=== PATIENT | male | born 1955 | race Caucasian/White ===

== ENCOUNTER 2023-10-20 09:24 | Outpatient (AMB) | payer MEDICARE, SELFPAY ==
--- NOTE | 2023-10-20 10:16 | MHC.OFFVIS ---
Intake Intake Visit Reasons: Low back pain Assessment & Plan Assessment & Plan (1) Lumbar stenosis: Code(s): M48.061 - Spinal stenosis, lumbar region without neurogenic claudication Plan Dear Jonathan, Thank you for referring Mr Ortega to our office today. He is a very nice 68-year-old gentleman presents to the office today for evaluation of a chronic low back pain with bilateral claudicating leg pains. He has had the symptoms now in his low back dating all the way back to college 45 years ago. He was very active athlete playing baseball and football. Along through the years he has had progressively worsening of the back pain as well as he is developed more recently over the last number of years progressive pain or discomfort that goes down to the front of his legs and occasionally into his calves with standing and walking. When he goes downstairs his legs will feel a little weak like they are going to give out. He had a few falls last year because of it. He was recently taken off his atorvastatin and that seemed to have helped a little bit but has not taken the symptoms away. He has been through numerous rounds of physical therapy and cortisone injections. These never seemed to give him the relief he is looking for. Maybe they will last for few days or so. At 1 point he was seen at [facility] and did not feel like he was given proper attention so never followed up with them. He is here today to see us for evaluation of lumbar MRI done at [facility] showing severely collapsed degenerative discs with lumbar stenosis. He does take Celebrex twice a day to help the pain. PMH: He is reasonably healthy, history of hypertension high cholesterol. He had thumb surgery in college. Denies any heart attacks, stroke, kidney issues, bleeding disorders or pulmonary problems Social hx: He does not smoke, quit drinking about a year ago, denies any recreational drug Medications: Celebrex and hypertensive medication which he can not recall the name Allergies: None Physical exam: Strength is intact, absent reflexes bilaterally at the patella and Achilles, gait is normal Imaging review: Lumbar MRI done at [facility] in February of 2023 shows severely collapse if not auto fused discs at L2-3, L3-4 and L4-5. He has severe facet arthropathy at L5-S1. He has moderate to severe lumbar stenosis at L2-3 and L3-4. Impression: 68-year-old male presents to the office today for evaluation of back pain as well as bilateral leg pain with standing walking which goes down into the front of his legs anteriorly into the thighs and then can extend down into the calves. It will make him feel as though his legs want to give out on him when he is going downstairs or if he is walking for any length of time. He has had to curtail much of his exercise. He has been through conservative treatment at [facility] and it just continues to get worse. The back pain is uncomfortable but not disabling. The leg pain is giving him more of a problem in the sense that is limiting his activities. He does have stenosis at L2-3 and L3-4 amongst other severe degenerative changes in the discs anteriorly. I believe he may have already auto fused the segments from L2-L5. That may be why he is having increased facet arthropathy at L5-S1. We talked about the fact that treating his back pain surgically would involve spinal fusion and would be much harder to predict the outcome because of the multiple areas of degeneration and suspected auto fusion. His back pain is not terrible and not disabling. He is more interested in the idea of treating the stenosis and the feeling of weakness and discomfort when he is walking. Typically that is something Dr. Tijerina would treat with a simple decompression, I suspect that the L2-3 and L3-4 levels. We did review the procedure and go over the recovery. I will review his imaging with Dr. Tijerina. The patient will get back to me as to whether he would like to proceed with surgery. Thank you for allowing us to care for your patient. The total time spent with this visit with this patient was 45 minutes reviewing history, physical exam, lumbar imaging review, and implementation of treatment plan or further diagnostic testing Jaret Tijerina MD,PhD [facility] Coding Level of Care Code New Pt Level 4 (16746) Diagnoses Lumbar stenosis M48.061
== END 2023-10-20 10:21 | disposition home or self-care (01) ==
PROVIDERS: PCP Physician Assistant Medical; Referring Provider Student in an Organized Health Care Education/Training Program; Visit Provider Physician Assistant
DX: M48.061 Spinal stenosis, lumbar region without neurogenic claudication (principal)
CPT/HCPCS: 99204

== ENCOUNTER → 2023-10-20 09:24 | Outpatient (BNVA) | payer MEDICARE, SELFPAY | PROVIDERS: PCP Physician Assistant Medical; Visit Provider Physician Assistant | DX: M48.061 Spinal stenosis, lumbar region without neurogenic claudication (principal); M47.817 Spondylosis without myelopathy or radiculopathy, lumbosacral region | CPT/HCPCS: 99202 ==

== ENCOUNTER 2023-10-31 14:32 | Outpatient (AMB) | payer MEDICARE, SELFPAY ==
--- NOTE | 2023-10-31 15:16 | A.OFFVIS_ITS ---
Intake Intake Visit Reasons: to discuss sx also with Assessment & Plan Assessment & Plan (1) Lumbar stenosis: Code(s): M48.061 - Spinal stenosis, lumbar region without neurogenic claudication Plan Mr. Ortega is coming back to the office today to review his procedure again and to meet Dr. Tijerina. This is a gentleman I previously saw for complaints of bilateral anterior thigh pain. We again reviewed his procedure, L3-4 bilateral decompression through a unilateral right-sided approach. Surgery is tentatively scheduled for December 27. Pt was given risk and benefits of surgery including but not limited to infection, hematoma , nerve injury,durotomy, weakness,bowel/bladder injury, persistent pain, as well as the option to continue with conservative treatment and patient wishes to proceed with surgery. Pt is aware they should stop their motrin, aspirin 7 days prior to surgery. All questions were answered to the best of our ability. If there is anything about this patients medical history that we have overlooked or concerns you have about us proceeding with surgery we would appreciate any input you can offer. Total amount of time spent in this visit was 20 minutes in discussion of symptoms, lumbar MRI imaging results and subsequent plan of care Jaret Tijerina MD,PhD [facility] Coding Level of Care Code Est Pt Level 3 (44414) Diagnoses Lumbar stenosis M48.061
== END 2023-10-31 14:52 | disposition home or self-care (01) ==
PROVIDERS: PCP Physician Assistant Medical; Visit Provider Physician Assistant
DX: M48.061 Spinal stenosis, lumbar region without neurogenic claudication (principal)
CPT/HCPCS: 99213

== ENCOUNTER → 2023-10-31 14:32 | Outpatient (BNVA) | payer MEDICARE, SELFPAY | PROVIDERS: PCP Physician Assistant Medical; Visit Provider Physician Assistant | DX: M48.061 Spinal stenosis, lumbar region without neurogenic claudication (principal) | CPT/HCPCS: 99212 ==

== ENCOUNTER 2023-12-28 06:27 | Day surgery (SDC) | payer MEDICARE, SELFPAY ==
[2023-12-20 14:36] VITALS: BMI 32.2
--- NOTE | 2023-12-26 14:06 | HO.ANESPROP2 ---
Documented by User: Jeanna Edmondson NP 12/26/23 14:06 HPI - Anesthesia Eval Consult details Narrative: 68yo M for Bilateral L3-4 Lumbar Decompression Medically cleared PMFSH Active Problems Active Problems: All Active Problems (Updated 12/20/23 @ 14:40 by Joanie Plasencia, ESTRELLITA) Lumbar stenosis (Acute) Past Medical History Medical History Frozen shoulder Back pain Weakness of both legs Sciatica Plantar fasciitis of right foot Obese GERD (gastroesophageal reflux disease) Elevated cholesterol HTN (hypertension) Surgical History Surgical History Hx of colonoscopy History of wisdom tooth extraction Hx of tonsillectomy Hx of thumb surgery Social History Social History Household Members: Spouse Housing: House Are you a primary home health care provider to a significant other at home: No Do you presently have visiting nurse or other home services: No Patient Tobacco Use Status: Never used Tobacco Use of substances other than those prescribed or required for medical reasons: No Have you been hit, kicked, punched, or otherwise hurt by someone within the past year? If so, by whom?: No Are you DNR?: No Advance Directives: No Advance Directives Information Provided: Yes Advance Directives on File: No Recently lost weight without trying: No Meds Allergies Allergy/AdvReac Type Severity Reaction Status Date / Time No Known Allergies Allergy Verified 12/20/23 14:32 Home Medications ?Medication ?Instructions ?Recorded ?Confirmed ?Last Taken ?Type amlodipine 5 mg tablet 5 mg PO DAILY 12/19/23 12/19/23 12/28/23 History celecoxib 100 mg capsule 100 mg PO BID 12/19/23 12/20/23 12/17/23 History lisinopril 10 mg tablet 10 mg PO DAILY 12/19/23 12/19/23 Unknown History loratadine 10 mg tablet 10 mg PO DAILY 12/19/23 12/19/23 Unknown History metoprolol tartrate 100 mg tablet 100 mg PO DAILY 12/19/23 12/19/23 12/28/23 History Exam Height,Weight and Vital Signs: Height 5 ft 8.9 in Weight 98.6 kg Pertinent Lab Results Pertinent Lab Results: CBC and BMP 11/2023 from outside facility WNL Assessment and Plan Assessment Anesthesia Assessment: Chart Reviewed Documented by User: Emiliano Schaffer MD 12/28/23 08:08 [facility] Past Medical History Medical History Frozen shoulder Back pain Weakness of both legs Sciatica Plantar fasciitis of right foot Obese GERD (gastroesophageal reflux disease) Elevated cholesterol HTN (hypertension) Family History Family history of problems with anesthesia: No Surgical History Surgical History Hx of colonoscopy History of wisdom tooth extraction Hx of tonsillectomy Hx of thumb surgery History of Problems with Anesthesia: No Social History Social History Household Members: Spouse Housing: House Are you a primary home health care provider to a significant other at home: No Do you presently have visiting nurse or other home services: No Patient Tobacco Use Status: Never used Tobacco Use of substances other than those prescribed or required for medical reasons: No Have you been hit, kicked, punched, or otherwise hurt by someone within the past year? If so, by whom?: No Are you DNR?: No Advance Directives: No Advance Directives Information Provided: Yes Advance Directives on File: No Recently lost weight without trying: No Meds Allergies Allergy/AdvReac Type Severity Reaction Status Date / Time No Known Allergies Allergy Verified 12/20/23 14:32 Home Medications ?Medication ?Instructions ?Recorded ?Confirmed ?Last Taken ?Type amlodipine 5 mg tablet 5 mg PO DAILY 12/19/23 12/19/23 12/28/23 History celecoxib 100 mg capsule 100 mg PO BID 12/19/23 12/20/23 12/17/23 History lisinopril 10 mg tablet 10 mg PO DAILY 12/19/23 12/19/23 Unknown History loratadine 10 mg tablet 10 mg PO DAILY 12/19/23 12/19/23 Unknown History metoprolol tartrate 100 mg tablet 100 mg PO DAILY 12/19/23 12/19/23 12/28/23 History Exam Airway Mallampati Class: II TM Dist: >3cm Neck ROM: Full Denture: Upper Loose/Missing/Broken Teeth: Yes (poor dentition lower teeth) Heart: [id number] Lungs: cta b/l Assessment and Plan Assessment Anesthesia Assessment: Anesthesia Plan Discussed Final Anesthetic Review Family History of Problems with Anesthesia: No History of Problems with Anesthesia: No NPO: Yes ASA Class: III Final Preanesthetic Review: No Changes in Pt Med Stat, Meds/Allgs Chart Reviewed, Consent Obtained/Reviewed and Anes Risks/Benef Reviewed Patient Risk: Intermediate Procedure Risk: Intermediate Assessment/Block/Sedation in SS: Assess/Block/Sedation-SS Anesthetic Plan Anesthetic Plan: GA Disposition: Standard PACU
--- NOTE | ~2023-12-28 | FL_ITS ---
EXAMINATION: XR FLUOROSCOPY WITH IMAGES CLINICAL INFORMATION: Lumbar decompression COMPARISON: None available. TECHNIQUE: Fluoroscopy Supervised By: Breezy. Fluoroscopy Time: 0 minutes. Cumulative Dose: 2.7 mGy. DAP: 0.6 Gycm2. Images: 1. FINDINGS: Single lateral intraoperative view of the lumbar spine demonstrate surgical instruments posterior to the L3-4 disc space level. FL/FL guidance in OR IMPRESSION: Intraoperative fluoroscopy guidance for lumbar spine surgery.
[2023-12-28] MEDS: Gabapentin 300 MG CAPSULE PO (06:53)
[2023-12-28] MEDS: methocarbamoL 750 MG TABLET PO (06:53)
[2023-12-28 06:54] VITALS: BP 121/79; PULSE 87; RESP 18; TEMP 36.1; O2SAT 95
--- NOTE | 2023-12-28 07:02 | P.HPSUR_ITS ---
Pre-Procedural Eval Section A - 24 Hr Update-Section A only Date of Service: 12/28/23 The patient is an INPATIENT: No Changes since office visit: No Cold of Flu in the past 2 weeks, No New Medical Problems, No Changes in Medication and No Patient answered all questions The patient has been examined within 24 hours of the surgical procedure. The History & Physical has been completed within 30 days and I have reviewed it.: No Section B - Complete if H&P > 30 days Chief Complaint: Spinal stenosis, lumbar region without neurogenic Allergies: Allergies Allergy/AdvReac Type Severity Reaction Status Date / Time No Known Allergies Allergy Verified 12/20/23 14:32 Review of Systems Sugical H&P ROS: Negative: Constitution, Cardiovascular, Respiratory, Neurological, Psychiatric, Hem-Onc, Allergic/Immunologic, Gastrointestinal, Genitourinary, Musculoskeletal, Integumentary, Endocrine and Eyes/Ears/Nose/Thro at Exam Surgical H&P Exam: Not Evaluated: HEENT, Not Evaluated: Heart, Not Evaluated: Lungs, Not Evaluated: Extremities, Not Evaluated: Abdomen, Not Evaluated: Skin and Not Evaluated: Neurological Plan Diagnosis/Plan: Unchanged L3-4 decompression Time Spent With Patient Time: Total time managing care of this patient today _6___ minutes.
[2023-12-28] MEDS: Lactated Ringers 1,000 ML 100 ML IVCONT (07:19)
--- NOTE | 2023-12-28 10:05 | W.PM.OPN ---
Operative Note Operative Note Date of Service: 12/28/23 Narrative: Preoperative Diagnosis: L3-L4 spinal stenosis/lateral recess stenosis/neural foraminal stenosis Operation: L3-L4 bilateral Laminotomy, Partial facetectomy and foraminotomy with use of microscope Consent Informed Consent was obtained for this operation. I have explained the nature, purpose and benefits of the operation. I have discussed the risks and benefit of the operation including possible complications or adverse events with patient/family. Alternative(s) were discussed with the patient with their relative benefits and risks as well as the consequences of not accepting the operation were included in obtaining consent. Surgeon: JENNIFER HARRISON MD, PHD Procedure Assisted By: Jaret Moy Description of Procedure This patient is suffering from bilateral thighs pain. An MRI shows spinal stenosis L3-4 and severe degenerative disc disease L3-4, L4-5 L5-S1. The patient was offered a decompression. The procedure complications were explained. The patient was consented. The patient was brought to the operating room and endotracheally intubated. The patient was turned in prone position on the Walt frame. Prep and drape was done followed by timeout. The Physician technical services assistant provided access. A mid lumbar incision was made followed by release of the paravertebral muscle on the right side to expose the L3-4 laminaeand facet joints. An intraoperative x-ray was obtained to confirm the correct level. The microscope was brought in. I took over the procedure. The high-speed drill was used to do a L3-L4 laminotomy until flavum ligament was reached. A #2 Kerrison was used to expand the laminotomy near flush to the pedicles and to include a partial facetectomy. The flavum ligament was opened and resected with a #3 Kerrison to decompress the underlying thecal sac. The flavum ligament was removed to decompress the lateral recess and the exiting L4 nerve root. A long nerve hook could be easily passed along the medial side of the pedicles as a sign of adequate decompression. The patient was turned contralaterally. The spinous processes undercut after which a contralateral decompression was done for the lateral recess and exiting nerve root. The microscope was removed. Hemostasis was done. The physician technical services assistant close the Incision in 2 layers. Steri-Strips were used to approximate incision. An OpSite with Tegaderm was used to cover the incision. All sponge needle counts were correct. Patient was extubated and transported in stable is to recovery room. Anesthesia: General Estimated Blood Loss (ml): 15 mL Complications: None Duration of Surgery: Under 60 Minutes Postoperative Plan: Discharge to home
--- NOTE | 2023-12-28 10:15 | P.DS_ITS ---
DS: Providers Provider Date of Service: 12/28/23 Date of discharge: 12/28/23 Primary care physician: DURAN Antunez Admitting clinician: Jeferson Tijerina DS: Diagnosis Discharge Diagnosis (1) Lumbar stenosis: Status: Acute DS: Summary Time Attestation Discharge Coordination Time (in mins): Five Quality: Safe Use of Opioids Does Pt have an Active Cancer Diagnosis on the Problem List?: No Quality: Stroke Does the patient have a stroke diagnosis?: No Physical Exam Vital Signs: Vital Signs: Last Vital Signs Temp 97.0 F 12/28/23 06:54 Pulse 87 12/28/23 06:54 Resp 18 12/28/23 06:54 BP 121/79 12/28/23 06:54 Pulse Ox 95 12/28/23 06:54 O2 Del Method Room Air 12/28/23 06:54 BMI result Body Mass Index 32.2 Discharge Plan Discharge Patient Disposition: Home, Self-Care Referrals: Sunita Lyons PA [Primary Care Provider] - 1 Week Discharge Medications: New docusate sodium [Colace] 100 mg capsule 100 mg PO BID Qty: 20 0RF oxycodone 5 mg tablet 5 mg PO Q4H PRN (Reason: pain) Qty: 30 0RF Rx Instructions: Partial Fill upon patient request. Continued metoprolol tartrate 100 mg tablet 100 mg PO DAILY amlodipine 5 mg tablet 5 mg PO DAILY lisinopril 10 mg tablet 10 mg PO DAILY celecoxib 100 mg capsule 100 mg PO BID loratadine 10 mg tablet 10 mg PO DAILY Discharge Orders: Discharge Order (Routine); Ordered 12/28/23 Ordered By: Jaret Mosqueda Diet: Advance to usual diet Activity on Discharge: As tolerated Activity Restrictions/Additional Instructions: After your spinal surgery we ask you to observe the following restrictions/guidelines: Activity: It is normal to feel some discomfort as you increase your activity, but that will improve with time. We ask you avoid heavy lifting or acitivities that cause pain. As a general rule, 8lbs is a safe limit for lifting right after surgery. Walk as much as you feel comfortable but not to exhaustion. You will feel extra tired the first few days after surgery. Stay well hydrated. It is OK to walk up and down stairs You may return to driving when you are off narcotics (such as vicodin, oxycodone, dilaudid, etc), and you are back to normal functional capacity. If you have any concerns please check with office before driving. Return to work is specific to each patient and each surgery, so please speak with your doctor/PA at first follow up. Please bring paperwork such as FMLA at that time if you need it filled out. Medications: For optimum pain control, it is best to start with a combination of 500 mg of Tylenol every 4 hours with 600 mg of Motrin every 8 hours, and use narcotics as needed in between for breakthrough pain. We will give you a short supply of narcotics after surgery (usually one weeks worth). If you need more please call the office but do not use more than prescribed. You will need to give our office 48 hours notice if you need narcotics refilled and we do not fill narcotics on weekends or evenings. If you are on a narcotic, it is a good idea to take a stool softener such as colace or senna to avoid constipation If you take blood thinner such as aspirin, Plavix, Coumadin, Effient, Eliquis etc for conditions such as Afib, DVT, Pulmonary embolus, coronary disease, stents etc please speak with your surgeon about specific details as to when you can resume these medications. You can resume NSAIDs on post op day 1 (eg: Motrin, Naproxen, etc). Follow up: Please call the office, , after surgery to arrange a 3 week follow up for wound check. Wound Care: You may remove your dressing on the first day after surgery. ?You may ?leave open to air. Please do not remove the steri strips underneath. they will fall off on their own in one week. IT IS NORMAL FOR THE WOUND TO OOZE OR BE BLOODY FOR A FEW DAYS AFTER SURGERY. ?IF THIS HAPPENS JUST PLACE NEW DRESSING OVER IT TO AVOID STAINING CLOTHES. You may shower on post op day # 1 We ask that you do not let the water soak the wound. If it does get wet, just towel dry lightly. Please do not scrub your incision or place any type of chemical/ointment on the wound. No tub baths, pools or jacuzzis for one month. If you have any leaking or redness from your wound, or fevers, please call office Print Language: Surinamese
[2023-12-28 10:35] VITALS: BP 132/77; PULSE 60; RESP 12; TEMP 36.1; O2SAT 97
[2023-12-28 10:40] VITALS: BP 117/75; PULSE 70; RESP 15; O2SAT 95
[2023-12-28 10:45] VITALS: BP 123/66; PULSE 72; RESP 16; O2SAT 96
[2023-12-28 10:50] VITALS: BP 130/89; PULSE 79; RESP 16; O2SAT 95
[2023-12-28 11:05] VITALS: BP 140/80; PULSE 68; RESP 16; TEMP 36.1; O2SAT 96
== END 2023-12-28 12:42 | disposition home or self-care (01) ==
PROVIDERS: PCP Physician Assistant Medical; Visit Provider Neurological Surgery
PROC: (CPT 63047; principal; 2023-12-28 08:30)
DX: M48.061 Spinal stenosis, lumbar region without neurogenic claudication (principal); M51.36 Other intervertebral disc degeneration, lumbar region; I10 Essential (primary) hypertension; E78.00 Pure hypercholesterolemia, unspecified; Z79.899 Other long term (current) drug therapy
CPT/HCPCS: 63047; J0131; J0690; J1100; J1885; J2250; J2405; J2704; J3010

== ENCOUNTER → 2023-12-28 06:27 | Outpatient (BNV) | payer MEDICARE, SELFPAY | PROVIDERS: PCP Physician Assistant Medical; Visit Provider Neurological Surgery | DX: M48.061 Spinal stenosis, lumbar region without neurogenic claudication (principal) | CPT/HCPCS: 63047; 99499 ==

== ENCOUNTER 2024-01-18 10:33 | Outpatient (AMB) | payer MEDICARE, SELFPAY ==
--- NOTE | 2024-01-18 10:39 | HO.SPINEOV ---
Intake Visit Reasons: 1st post op Intake Note: Mr. Ortega is here today for 1st post-op appointment. Waste Examiner Required: No Allergies No Known Allergies Allergy (Verified 01/18/24 10:42) Assessment & Plan Assessment & Plan (1) Status post lumbar spine surgery for decompression of spinal cord: Code(s): Z98.890 - Other specified postprocedural states Category: Medical Plan Procedure: L3-L4 bilateral Laminotomy, Partial facetectomy Jeferson comes in today for his 1st postoperative visit. He reports he is very satisfied with the surgery and feels much better than he did pre-operatively. He reports resolution of the left-sided shooting lower extremity pain and his anterior thigh pain. He does state that he still has some pain at the top of his left foot, but feels this too is improving to an extent. He is able to ambulate much better, and has no issue completing stairs anymore. No new neurological deficits. Patient is able to ambulate well, rises from a seated position without difficulty. Incision sites are closed & well healing. I removed his steri-strips which remained on since surgery. We will follow-up with the patient in 6 weeks for his 2nd postoperative visit. Leonard Tijerina MD,PhD [facility] Coding Level of Care Code Global (77976) Diagnoses Status post lumbar spine surgery for decompression of spinal cord Z98.890
== END 2024-01-18 11:17 | disposition home or self-care (01) ==
PROVIDERS: PCP Physician Assistant Medical; Visit Provider Physician Assistant
DX: Z98.890 Other specified postprocedural states (principal)
CPT/HCPCS: 99024

== ENCOUNTER → 2024-01-18 10:33 | Outpatient (BNVA) | payer MEDICARE, SELFPAY | PROVIDERS: PCP Physician Assistant Medical; Visit Provider Physician Assistant | DX: Z48.89 Encounter for other specified surgical aftercare (principal) | CPT/HCPCS: 99212 ==

== ENCOUNTER 2024-03-11 14:33 | Outpatient (AMB) | payer MEDICARE, SELFPAY ==
--- NOTE | 2024-03-11 14:38 | A.SPINEOV_ITS ---
Intake Visit Reasons: 2nd post op Intake Note: Mr. Ortega is here for his 2nd post op. Machines Technician Required: No Allergies No Known Allergies Allergy (Verified 01/18/24 10:42) Assessment & Plan Assessment & Plan (1) Lumbar stenosis: Code(s): M48.061 - Spinal stenosis, lumbar region without neurogenic claudication Category: Medical Plan Mr Ortega is about 2 and half months out from his L3-4 decompression. Has seen some improvements in his ability to walk and mobilize and go up and downstairs. He is right now doing better than he was before surgery with respect to those functional activities. Still continues to have bilateral hip pain. He was seen at the [facility] office by Dr. Leonard and recommended to have trochanteric bursa injections. He did not get the injections because Dr. Leonard wanted to wait 3 months after our surgery. On my exam, the gentleman strength is good, his wound is all healed up. We discussed activity guidelines, restrictions expectations after lumbar decompression. I told him it would be about 6-8 months before he would see the final results of the surgery but that it was already optimistic that he was walking better. In terms of the trochanteric injections, Dr. Leonard can proceed with these at any time if he wishes, there is no contraindication from our standpoint of our surgery. Jaret Tijerina MD, PhD [facility] Coding Level of Care Code Global (71285) Diagnoses Lumbar stenosis M48.061
== END 2024-03-11 14:55 | disposition home or self-care (01) ==
PROVIDERS: PCP Physician Assistant Medical; Visit Provider Physician Assistant
DX: M48.061 Spinal stenosis, lumbar region without neurogenic claudication (principal)
CPT/HCPCS: 99024

== ENCOUNTER → 2024-03-11 14:33 | Outpatient (BNVA) | payer MEDICARE, SELFPAY | PROVIDERS: PCP Physician Assistant Medical; Visit Provider Physician Assistant | DX: M48.061 Spinal stenosis, lumbar region without neurogenic claudication (principal) | CPT/HCPCS: 99212 ==

== ENCOUNTER 2025-02-28 13:03 | Outpatient (AMB) | payer OTHER, SELFPAY ==
--- NOTE | 2025-02-28 13:04 | A.SPINEOV_ITS ---
Intake Visit Reasons: LBP Intake Note: Mr. Ortega is here today c/o Low back pain that radiates down the leg causing numbness. 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 We did L3-4 laminotomies last year and him with good success for his bilateral claudicating leg pain. Unfortunately in the over the last few months he has had a recurrence of pain, specifically some back pain which is radiating down into his left hip going into his left anterior medial thigh as well as into his posterior thigh and outer calf into his foot. He describes it as a tight feeling on the top of his foot. He is also reporting some degree of footdrop where he has to lift his leg up higher to avoid tripping on things. He has been taking ibuprofen and Tylenol religiously to help deal with it. It is aggravated with standing and walking. On my exam he looks a little uncomfortable just sitting on the exam table. When he gets up to walk he appears to have a Trendelenburg gait. On my motor exam he has a very subtle weakness of his left tibialis. Nothing profound. His wound is healed up very well from last year. In light of the progression of his symptoms and what sounds like possibly an L5 radiculopathy I am going to order MRI to evaluate. We will do this with and without gadolinium in light of his postoperative status. Total amount of time spent in this visit was 20 minutes in discussion of symptoms, ordering lumbar imaging and subsequent plan of care Jaret Tijerina MD,PhD [facility] Orders: Orders MR lumbar spine wo/w con Today M48.061 - Spinal stenosis, lumbar region without neurogenic claudication Coding Level of Care Code Est Pt Level 3 (71891) Diagnoses Lumbar stenosis M48.061
--- OUTSIDE RECORDS SUMMARY | 2025-02-28 13:06 | XMS_ITS | Clinical Summary ---
Author Organization [facility] [address] [facility] Address [address] [place] [address] Phone Care Team Providers Care Water Hydrant Installer Name Role Phone Dereje Cavanaugh MD Primary Care Provider Social History Tobacco Use Types Packs/Day Years Used Date Smoking Tobacco: Never Assessed Sex and Gender Information Value Date Recorded Sex Assigned at Not on file Legal Sex Male 9:56 AM EDT Gender Identity Not on file Sexual Orientation Not on file Plan of Treatment Upcoming Encounters Date Type Department Care Team (Late st Contact Info) Description 08/12/2025 11:30 AM EST Office Visit Adult Medicine [address] [phone] Dereje Cavanaugh MD [address] [place] [address] Health Maintenance Due Date Last Done Comments DTaP,Tdap,and Td Vaccines (1 - Tdap) 02/10/1975 Pneumococcal Vaccine: 50+ Ye ars (1 of 1 - PCV) 02/10/2006 Zoster Vaccines (1 of 2) 02/10/2006 COVID-19 Vaccine ( - 2023-2 5 season) 2024 Abdominal Aortic Aneurysm (A AA) Screen 02/15/2025 Cholesterol Screening (Lipid Panel) 02/15/2025 Colorectal Cancer Screening: Colonoscopy 02/15/2025 Depression Screening 02/15/2025 Falls Risk Assessment 02/15/2025 Hepatitis C Screening 02/15/2025 Medicare Annual Wellness Visit 02/15/2025 Social Influencers of Health Screening 02/15/2025 Influenza Vaccine (Season Ended) 2025 RSV Immunization Adult Patie nts (1 - 1-dose 75+ series) 02/10/2031 HIB Vaccines Aged Out No longer eligi ble based on patient's age to complete this topic HPV Vaccines Aged Out No longer eligi ble based on patient's age to complete this topic Hepatitis A Vaccines Aged Out No long er eligible based on patient's age to complete this topic Hepatitis B Vaccines Aged Out No long er eligible based on patient's age to complete this topic IPV Vaccines Aged Out No longer eligi ble based on patient's age to complete this topic MMR Vaccines Aged Out No longer eligi ble based on patient's age to complete this topic Meningococcal ACWY Vaccine Aged Out N o longer eligible based on patient's age to complete this topic Meningococcal B Vaccine Aged Out No l onger eligible based on patient's age to complete this topic RSV Immunization Patients Un leeanna 20 months Aged Out No longer eligible b ased on patient's age to complete this topic Varicella Vaccines Aged Out No longer eligible based on patient's age to complete this topic Insurance [employer] MEDICARE ADVANTAGE Care Teams Water Hydrant Installer Relationship Specialty Start Date End Date Dereje Cavanaugh MD [address] [place] [address] PCP - General Internal Medicine 02/14/25
== END 2025-02-28 13:35 | disposition home or self-care (01) ==
LOC: HO.HNS 13:03
PROVIDERS: PCP Physician Assistant Medical; Visit Provider Physician Assistant
DX: M48.061 Spinal stenosis, lumbar region without neurogenic claudication (principal)
CPT/HCPCS: 99213

== ENCOUNTER 2025-03-04 16:11 | Outpatient (REF) | payer OTHER, SELFPAY ==
--- OUTSIDE RECORDS SUMMARY | 2025-03-04 18:55 | XMS_ITS | Clinical Summary ---
Author Organization [facility] [address] [facility] Address [address] [place] [address] Phone Care Team Providers Care Fabric Sourcer Name Role Phone Dereje Cavanaugh MD Primary [...] 11:30 AM EST Office Visit Adult Medicine [address] [phone] Dereje Cavanaugh MD [address] [place] [address] Health Maintenance Due Date Last Done Comments [...] topic Insurance [employer] MEDICARE ADVANTAGE Care Teams Fabric Sourcer Relationship Specialty Start Date End Date Dereje Cavanaugh MD [address] [place] [address] PCP - General Internal Medicine 02/14/25
== END 2025-03-04 16:12 | disposition home or self-care (01) ==
LOC: HO.HOSX 16:11
PROVIDERS: Visit Provider Physician Assistant
DX: Z13.89 Encounter for screening for other disorder (principal)

== ENCOUNTER 2025-03-05 08:17 | Outpatient (REF) | payer OTHER, SELFPAY ==
--- NOTE | ~2025-03-05 | XR_ITS ---
EXAMINATION: X-ray lumbar spine 4 views CLINICAL INFORMATION: Spinal stenosis, lumbar region without neurogenic claudication. TECHNIQUE: AP and lateral views. Lateral views in flexion and extension position. COMPARISON: None FINDINGS: Multilevel marginal osteophyte formation and endplate sclerosis decreased intervertebral disc height throughout the axial skeleton with incomplete ankylosis L2-3. S-shaped curvature of the lumbar spine with a levoconvex rotoscoliosis apex at L3-4. Grade 1 retrolisthesis L4-5 which maintains during flexion and extension position. No acute cortical disruption. Vascular calcifications, aorta. XR/XR lumbar spine 4V min IMPRESSION: Multilevel spondylosis with a levoconvex rotoscoliosis apex at L3-4 and a grade 1 retrolisthesis L4-5 without gross instability. Electronically signed by: Sandeep Parrish MD 03/05/2025 09:31 AM EDT
--- OUTSIDE RECORDS SUMMARY | 2025-03-05 08:26 | XMS_ITS | Clinical Summary ---
Author Organization [facility] [address] [facility] Address [address] [place] [address] Phone Care Team Providers Care Radiological Engineer Name Role Phone Dereje Cavanaugh MD Primary [...] 11:30 AM EST Office Visit Adult Medicine [address] [phone] Dereje Cavanaugh MD [address] [place] [address] Health Maintenance Due Date Last Done Comments [...] topic Insurance [employer] MEDICARE ADVANTAGE Care Teams Radiological Engineer Relationship Specialty Start Date End Date Dereje Cavanaugh MD [address] [place] [address] PCP - General Internal Medicine 02/14/25
== END 2025-03-05 08:18 | disposition home or self-care (01) ==
LOC: HO.HOSX 08:17
PROVIDERS: Visit Provider Physician Assistant
DX: M48.061 Spinal stenosis, lumbar region without neurogenic claudication (principal)
CPT/HCPCS: 72110

== ENCOUNTER → 2025-03-05 08:28 | Outpatient (BNV) | payer OTHER, SELFPAY | PROVIDERS: Visit Provider Radiology Diagnostic Radiology | DX: M47.896 Other spondylosis, lumbar region (principal) | CPT/HCPCS: 72110 ==

== ENCOUNTER 2025-03-18 18:12 | Outpatient (REF) | payer MEDICARE, SELFPAY ==
--- NOTE | ~2025-03-18 | MR_ITS ---
EXAMINATION: MR LUMBAR SPINE WITH AND WITHOUT CONTRAST CLINICAL INFORMATION: Spinal stenosis, lumbar region, without neurogenic claudication. 70-year-old male. Spinal stenosis, cannot walk without pain and numbness left leg and both feet for 4 months, ongoing. No improvement, no injury or fall. COMPARISON: No prior MRI. Lumbar spine radiographs 03/05/2025. TECHNIQUE: Multiplanar multisequence MR imaging of the lumbar spine was done before and after the administration of 10 mL IV Gadavist. Examination was performed on a 1.5 Sonali Siemens magnet, utilizing standard sequences. FINDINGS: CORONAL ALIGNMENT: -Mild levoconvex scoliosis, apex at L4 with a mild rotatory component. SAGITTAL ALIGNMENT: - Straightening of the normal lordosis. -There is a 2 mm retrolisthesis of L2 on L3. -There is a 5 mm retrolisthesis of L4 on L5. -Alignment is otherwise anatomic. LUMBOSACRAL JUNCTION: -Normal. There are 5 fzb-[id number] lumbar-type vertebral bodies. VERTEBRAL BODIES/BONE MARROW: -No gross bone marrow edema identified. No abnormal infiltrating bone marrow signal. -There are prominent fatty type endplate changes present at L2-L5. -There has been a right hemilaminotomy at L3-4 with presumed microdiscectomy. -There is no compression deformity, fracture, or suspicious bone lesion. DISCS: -Severe loss of disc height and signal spanning L2-L5. -Mild loss of disc height and signal at T12-L1, and L1-L2. -Relative preservation of L5-S1 disc. SPINAL CANAL: -There is congenital spinal canal narrowing with shortened pedicles spanning L1-S1. CONUS MEDULLARIS: -Terminates at T12. Morphology and signal is normal. INTRADURAL NERVE ROOTS: - Within normal limits. No nerve root clumping. -No abnormal intra or extradural enhancement. -Epidural lipomatosis present throughout the lumbar spine, most significant at L5 and S1. Axial Disc Space Images: T12-L1: There is a shallow concentric disc bulge present, mild hypertrophic degenerative facet changes, resulting in mild central canal narrowing, and mild bilateral neural foraminal narrowing. L1-L2: Shallow concentric disc bulge present with a superimposed left paracentral and lateral disc protrusion. This contacts, and may impinge the traversing left L2 nerve roots. There is epidural lipomatosis laterally and posteriorly. There is mild to moderate central canal stenosis, moderate to severe left subarticular recess stenosis, and mild left greater than right neural foraminal stenosis. L2-L3: There is lateral and dorsal epidural lipomatosis. There is a shallow disc osteophytic ridge complex, slightly eccentric into the left neural foramen, extending into both neural foramen and lateral to foramen on both sides. Moderate hypertrophic degenerative facet changes are present with moderate posterior ligamentous thickening/infolding. Combination of findings is resulting in moderate to severe central canal stenosis with central nerve root crowding and loss of CSF space. There is moderate bilateral neural foraminal narrowing left greater than right. L3-L4: There has been right hemilaminotomy and stripping of the right ligamentum flavum. There is been presumed microdiscectomy. There is a residual shallow disc osteophytic ridge complex, more prominent in the right greater than left foraminal zones. Mild left lateral and dorsal epidural lipomatosis. Moderate left greater than right hypertrophic degenerative facet changes. There is mild to moderate central canal narrowing, mild bilateral subarticular recess narrowing, moderate to severe right and [id number]-yb-cbhiejqv left neural foraminal stenosis. There is contact without definite impingement of the exiting right L3 nerve root. L4-L5: There is a degenerative 5 mm retrolisthesis at this level. There is a disc osteophytic ridge complex present extending into both foraminal zones left greater than right. Moderate hypertrophic degenerative facet changes are present right greater than left. There is right greater than left posterior ligamentous thickening/infolding. There is mild dorsal epidural lipomatosis. Combination of findings is resulting in moderate to severe central canal stenosis, moderate to severe left greater than right subarticular recess stenosis, and moderate bilateral neural foraminal encroachment. L5-S1: Epidural lipomatosis circumferentially. Loss of CSF space with crowding of the nerve roots in the central canal. Moderate hypertrophic degenerative facet changes with bilateral facet joint effusions. Aside from epidural lipomatosis, there is no significant central canal or subarticular recess narrowing. Moderate right and moderate to severe left neural foraminal encroachment is present, with contact and possible mild impingement of the exiting left L5 root. PARAVERTEBRAL AND INCLUDED EXTRASPINAL SOFT TISSUES: -Normal caliber aorta. -Mild denervation atrophy of the paraspinous musculature at L4 and inferior. MR/MR lumbar spine wo/w con IMPRESSION: 1. There has been prior laminotomy on the right at L3-4 with presumed microdiscectomy. 2. Advanced lumbar spondylosis most significant at L2-L5 with severe disc degeneration at these levels. There is a mild levoconvex rotary scoliosis. There is congenital spinal canal narrowing complicated by epidural lipomatosis spanning L1-S1. 3. Left paracentral and lateral disc protrusion at L1-2 is resulting in severe left subarticular recess narrowing. This may impinge the traversing L2 nerve root. 4. Additional level findings as detailed above. Electronically signed by: Anuel Pineda MD 03/19/2025 09:10 AM EDT
[2025-03-18] MEDS: gadobutroL 10 ML VIAL IVPUSH (19:08)
--- OUTSIDE RECORDS SUMMARY | 2025-03-18 19:15 | XMS_ITS | Clinical Summary ---
Author Organization [facility] 444 [facility] Address [address] [place] [address] Phone Care Team Providers Care Laborer Tree Tapping Name Role Phone Dereje Cavanaugh MD Primary [...] 11:30 AM EST Office Visit Adult Medicine [address] [phone] Dereje Cavanaugh MD [address] [place] [address] Health Maintenance Due Date Last Done Comments [...] topic Insurance [employer] MEDICARE ADVANTAGE Care Teams Laborer Tree Tapping Relationship Specialty Start Date End Date Dereje Cavanaugh MD [address] [place] [address] PCP - General Internal Medicine 02/14/25
== END 2025-03-18 18:13 | disposition home or self-care (01) ==
LOC: HO.MRI 18:12
PROVIDERS: Visit Provider Physician Assistant
DX: M48.061 Spinal stenosis, lumbar region without neurogenic claudication (principal); Z98.890 Other specified postprocedural states
CPT/HCPCS: 72158; A9585

== ENCOUNTER → 2025-03-18 18:25 | Outpatient (BNV) | payer MEDICARE, SELFPAY | PROVIDERS: Visit Provider Radiology Diagnostic Radiology | DX: M47.816 Spondylosis without myelopathy or radiculopathy, lumbar region (principal); M51.369 Other intervertebral disc degeneration, lumbar region without mention of lumbar back pain or lower extremity pain; M48.061 Spinal stenosis, lumbar region without neurogenic claudication; M51.26 Other intervertebral disc displacement, lumbar region | CPT/HCPCS: 72158 ==

== ENCOUNTER 2025-03-24 10:35 | Outpatient (AMB) | payer MEDICARE, SELFPAY ==
--- NOTE | 2025-03-24 10:46 | A.SPINEOV_ITS ---
Intake Visit Reasons: MRI f/up Intake Note: Mr. Ortega is here today to discuss the results of his MRI. Manager Endoscopy Required: No Allergies No Known Allergies Allergy (Verified 01/18/24 10:42) Assessment & Plan Assessment & Plan (1) Back pain: Code(s): M54.9 - Dorsalgia, unspecified Category: Medical Plan Mr Ortega came back in today to review his MRI. It was done here at [facility]. He has axial low back pain, particularly worse if he is standing for any length of time, walking or getting up from a seated position. Intermittently has lower extremity symptoms as well. It localizes itself just below where our incision is in his low back. It can radiate out to the sides. His MRI shows that he has severe degenerative disc disease at L2-3, L3-4 and L4-5. There are Modic type 3 endplate changes suggesting this is bone remodeling. He also has significant facet arthropathy at L5-S1 with a synovial cyst on the left. The area of decompression done by Dr. Tijerina looks great with no significant residual central canal stenosis. I sat down with him at length and we discussed the natural history of axial low back pain and specifically in the setting of his situation how difficult it can be to know exactly where it is coming from. To treat this surgically would involve multiple levels of spinal fusion and he is really just not ready for that kind of intervention at this point. I think an easier and much less invasive way to go would be to 1st start with L5-S1 facet blocks moving to RFA if that helps, and if not, consider possibility of Intracept at the degenerative disc levels. I will refer him to Dr. Springer who does our interventional procedures. I told him to give me a call after all the procedures are done at let me know how it is going. Total amount of time spent in this visit was 20 minutes in discussion of symptoms, lumbar MRI imaging results and subsequent plan of care Jaret Tijerina MD,PhD [facility] Orders: Referrals Pain Management Referral M54.9 - Dorsalgia, unspecified Coding Level of Care Code Est Pt Level 3 (44654) Diagnoses Back pain M54.9
--- OUTSIDE RECORDS SUMMARY | 2025-03-24 11:20 | XMS_ITS | Clinical Summary ---
Author Organization [facility] 444 [facility] Address [address] [place] [address] Phone Care Team Providers Care Entertainment & Media Correspondent Name Role Phone Dereje Cavanaugh MD Primary [...] 11:30 AM EST Office Visit Adult Medicine [address] [phone] Dereje Cavanaugh MD [address] [place] [address] Health Maintenance Due Date Last Done Comments [...] topic Insurance [employer] MEDICARE ADVANTAGE Care Teams Entertainment & Media Correspondent Relationship Specialty Start Date End Date Dereje Cavanaugh MD [address] [place] [address] PCP - General Internal Medicine 02/14/25
== END 2025-03-24 11:16 | disposition home or self-care (01) ==
LOC: HO.HNS 10:36
PROVIDERS: Visit Provider Physician Assistant
DX: M54.9 Dorsalgia, unspecified (principal)
CPT/HCPCS: 99213

== ENCOUNTER → 2025-03-24 10:35 | Outpatient (BNVA) | payer MEDICARE, SELFPAY | PROVIDERS: Visit Provider Physician Assistant | DX: Z71.2 Person consulting for explanation of examination or test findings (principal); M54.50 Low back pain, unspecified | CPT/HCPCS: 99212 ==

== ENCOUNTER 2025-04-11 12:10 | Outpatient (AMB) | payer MEDICARE, SELFPAY ==
--- OUTSIDE RECORDS SUMMARY | 2025-04-11 12:12 | XMS_ITS | Clinical Summary ---
Author Organization [facility] 444 [facility] Address [address] [place] [address] Phone Care Team Providers Care Beef Ribber Name Role Phone Dereje Cavanaugh MD Primary [...] 11:30 AM EST Office Visit Adult Medicine [address] [phone] Dereje Cavanaugh MD [address] [place] [address] Health Maintenance Due Date Last Done Comments DTaP,Tdap,and Td Vaccines (1 - Tdap) 02/10/1975 Pneumococcal Vaccine: 50+ Ye ars (1 of 1 - PCV) 02/10/2006 Zoster Vaccines (1 of 2) 02/10/2006 COVID-19 Vaccine (2023-2 5 season) 2024 Abdominal Aortic Aneurysm (A AA) Screen 02/15/2025 Cholesterol Screening (Lipid Panel) 02/15/2025 Colorectal Cancer Screening: Colonoscopy 02/15/2025 Depression Screening 02/15/2025 Falls Risk Assessment 02/15/2025 Hepatitis C Screening 02/15/2025 Medicare Annual Wellness Visit 02/15/2025 Social Influencers of Health Screening 02/15/2025 Influenza Vaccine (#1) 2025 RSV Immunization Adult Patie nts (1 [...] topic Insurance [employer] MEDICARE ADVANTAGE Care Teams Beef Ribber Relationship Specialty Start Date End Date Dereje Cavanaugh MD [address] [place] [address] PCP - General Internal Medicine 02/14/25
--- OUTSIDE RECORDS SUMMARY | 2025-04-11 12:12 | XMS_ITS | Clinical Summary ---
Author Organization [facility] Address [address] [place] [address] Phone Care Team Providers Care Director Of Occupational Therapy Name Role Phone Chalo Masters MD Primary Care Provider [phone] Social History Tobacco Use Types Packs/Day Years Used Date Smoking Tobacco: Never Assessed Education Answer Date Recorded Are you interested in more education? Not on deborah e 01/21/2023 Are you concerned about learning? Not on file 01/21/2023 No 01/21/2023 No 01/21/2023 Digital Access Answer Date Recorded No 02/19/2023 No 02/19/2023 No 02/19/2023 Reliable internet access at home? Not on file 02/19/2023 Device with a working camera? Not on file Sex and Gender Information Value Date Recorded Sex Assigned at Not on file Legal Sex Male 6:27 PM EST Gender Identity Not on file Sexual Orientation Not on file Plan of Treatment Health Maintenance Due Date Last Done Comments Adult Td,Tdap Booster 1955 LIPID PANEL 1956 DEPRESSION SCREENING 1968 SMOKING Hx and SMOKELESS TOB ACCO SCREENING 02/10/1969 HEPATITIS C SCREENING 02/10/1974 COLOGUARD 02/10/2001 COLONOSCOPY 02/10/2001 COLORECTAL CANCER SCREENING 02/10/2001 FIT TEST 02/10/2001 FOBT 02/10/2001 SIGMOIDOSCOPY 02/10/2001 VIRTUAL COLONOSCOPY 02/10/2001 PNEUMOCOCCAL VACCINES (50+ y ears) (1 of 1 - PCV) 02/10/2006 ZOSTER VACCINES (1 of 2) 02/10/2006 COVID-19 VACCINE ( - 2023-2 5 season) 2024 RSV VACCINE (1 - 1-dose 75+ series) 02/10/2031 HEPATITIS A VACCINES Aged Out No long er eligible based on patient's age to complete this topic HIB VACCINES Aged Out No longer eligi ble based on patient's age to complete this topic MENINGOCOCCAL VACCINES (ACWY) Aged Out No longer eligible based on patient's age to complete this topic MENINGOCOCCAL VACCINES (B) Aged Out N o longer eligible based on patient's age to complete this topic Medical Devices Not on file Insurance HEALTH SAFETY NET PARTIAL HEALTH SAFETY NET PARTIAL HEALTH SAFETY NET PARTIAL HEALTH SAFETY NET PARTIAL HEALTH SAFETY NET PARTIAL HEALTH SAFETY NET PARTIAL HEALTH SAFETY NET PARTIAL HEALTH SAFETY NET PARTIAL HEALTH SAFETY NET PARTIAL Care Teams Director Of Occupational Therapy Relationship Specialty Start Date End Date Chalo Masters MD [address] [place] [address], [facility] [address] [place] [address] [email or web address] PCP - General Internal Medicine 04/05/19 Additional Source Comments The information contained in this document represents components of the legal health record. It is not the complete legal health record.[facility]
--- OUTSIDE RECORDS SUMMARY | 2025-04-11 12:13 | XMS_ITS | Data Portability ---
Author Organization [facility] Address [address] [place] [address] Assessment Encounter Date Assessment Date Assessment LastModified by Organization Details LastModified Time 10/07/2014 10/07/2014 Rest, warm compressors, activity modification, antiinflamatory Rx. Consider imaging study. Patient instructed to call back if no improvement or if he gets worse. [facility]riad Not available 10/07/2014 11:33:49 03/15/2019 03/15/2019 Pt is stable on current Rx. Continue same. mriad Not available 03/15/2019 11:47:12 11/22/2019 11/22/2019 BP is poorley controlled. Adjust regimen and f/u in 1 mnth. Patient instructed to call back if no improvement or if he gets worse. mriad Not available 11/22/2019 11:23:11 02/20/2020 02/20/2020 Will treat with Antibiotics and Medrol pack for congestion relief. Patient instructed to call back if no improvement or if he gets worse. mriad Not available 02/20/2020 11:41:12 10/08/2020 10/08/2020 Pt is stable on current Rx. Continue same. mriad Not available 10/08/2020 10:54:47 Plan of Treatment Reminders Order Date Submit Date Provider Last Modified By Organization Details Last Modified Time Details Appointments None recorded. Lab CMP, serum or plasma 2020 021 [email or web address] Application [facility], [address], [place], [address], 08:33:23 CBC 2020 021 [email or web address] Application [facility], [address], [place], [address], 1 08:33:24 lipid panel w/ direct LDL, serum 2020 021 [facility], [address], [place], [address], 1 11:01:24 PSA, serum or plasma 2020 021 [facility], [address], [place], [address], 08:33:25 TSH, serum or plasma 2020 021 [facility], [address], [place], [address], 1 08:33:24 CMP, serum or plasma 2018 019 [facility], [address], [place], [address], 9 11:50:29 CBC 2018 019 [facility], [address], [place], [address], 9 11:50:30 lipid panel w/ direct LDL, serum 2018 019 [facility], [address], [place], [address], 9 11:50:29 PSA, serum or plasma 2018 019 [facility], [address], [address], 9 11:50:28 TSH, serum or plasma 2018 019 [facility], [address], [place], [address], 9 11:50:31 Referral oral surgery/de ntist referral 2020 021 ATHENA[facility] Wilver Rasmussen MD, [address], [address], [place], [address], 1 11:09:52 gastroente rologist referral 2020 mriad Not available 20:45:36 dermatolog ist referral 2020 [facility], [address], [place], [address], 11:09:55 astrochemist referral 2018 019 [facility] Not available 9 12:12:17 physical therapist referral 2014 Russell tillman [facility], [address] [facility], [place], [address], 5 08:24:05 dermatolog ist referral - Please evaluate patient for suspicious skin lesion, and contact patient with apointment . We will send a prompt insurance referral. Thank you. 2014 015 CASSIA Garza DO, [address], [address], [place], [address], 5 15:35:32 Procedures None recorded. Surgeries None recorded. Imaging x-ray, cervical spine 2014 015 [email or web address] [facility]Central Scheduling), [address], [place], [address], 5 08:18:28 Medication Orders Augmentin 875 mg-125 mg tablet [address]/Pharmacy #0636, [address], [place], [address], 3 10:22:43 Medrol (Rod) 4 mg tablets in a dose pack [address]/Pharmacy #0636, [address], [address], [place], [address], 3 10:22:52 omeprazole 40 mg capsule,de layed release 2019 020 [facility]FACE [facility]/Pharmacy #0636, [address], [address], [place], [address], 0 11:42:28 Augmentin 875 mg-125 mg tablet [address]/Pharmacy #0636, [address], [address], [place], [address], 3 10:22:43 Medrol (Rod) 4 mg tablets in a dose pack [address]/Pharmacy #0636, [address], [address], [place], [address], 3 10:22:52 metoprolol succinate ER 100 mg tablet,ext ended release 24 hr 2019 020 INTERFACE [facility]/Pharmacy #0636, [address], [address], [place], [address], 0 11:25:12 amlodipine 5 mg tablet 2018 019 INTERFACE [facility]/Pharmacy #0636, [address], [address], [place], [address], 9 11:49:56 atenolol 50 mg tablet 2018 019 [facility]/Pharmacy #0636, [address], [address], [place], [address], 0 11:24:40 lisinopril 20 mg tablet 2018 019 INTERFACE [facility]armacy #06[facility], [address], [address], [place], [address], 9 11:49:57 diclofenac sodium 75 mg tablet,del ayed release 2014 015 INTERFACE [facility], [address], [address], [place], [address], 5 11:34:48 Patient TargetsNo targets recorded. Patient Instructions Encounter Date Encounter Id Patient Instructions Last Modified By Organization Details Last Modified Time 10/07/2014 [id number] neck pain: care instructions Not available 10/07/2014 11:40:30 high blood pressure: care instructions Not available 10/07/2014 11:40:30 learning about high blood pressure Not available 10/07/2014 11:40:30 03/15/2019 [id number] neck pain: care instructions mriad Not available 03/15/2019 11:49:54 allergies: care instructions mriad Not available 03/15/2019 11:49:55 managing your allergies: care instructions mriad Not available 03/15/2019 11:49:55 high blood pressure: care instructions mriad Not available 03/15/2019 11:49:55 learning about high blood pressure mriad Not available 03/15/2019 11:49:54 11/22/2019 [id number] neck pain: care instructions mriad Not available 11/22/2019 11:25:36 allergies: care instructions mriad Not available 11/22/2019 11:25:36 managing your allergies: care instructions mriad Not available 11/22/2019 11:25:36 high blood pressure: care instructions mriad Not available 11/22/2019 11:25:11 learning about high blood pressure mriad Not available 11/22/2019 11:25:11 02/20/2020 [id number] Patient will titi l back if no improvment in 1 week. mriad Not available 02/20/2020 11:41:12 10/08/2020 [id number] allergies: care instructions mriad Not available 10/08/2020 11:00:22 managing your allergies: care instructions mriad Not available 10/08/2020 11:00:22 neck pain: care instructions mriad Not available 10/08/2020 11:00:22 high blood pressure: care instructions mriad Not available 10/08/2020 11:00:22 learning about high blood pressure mriad Not available 10/08/2020 11:00:22 Reason for Referral Referring Physician: [facility], Encounter Date: 10/07/2014 Baggage Porter Referral for M elanocytic nevus of skin Please evaluate patient for suspicious skin lesion, and contact patient with apointment. We will send a prompt insurance referral. Thank you. Referring Physician: [facility], Encounter Date: 10/07/2014 Consumer Lender Referral for Foot pain Referring Physician: Mitchell Connelly Medicine, Encounter Date: 03/15/2019 Whipped Topping Finisher Referral for Screening for malignant neoplasm of colon Referring Physician: [facility], Encounter Date: 10/08/2020 Baggage Porter Referral for S kin lesion Referring Physician: Mitchell Connelly Medicine, Encounter Date: 10/08/2020 Oral Surgery/dentist Referra l for Infection of tooth Referring Physician: Mitchell Connelly Medicine, Encounter Date: 10/08/2020 Results Created Date Observation Date Name Description Value Unit Range Abnormal Flag Note LastModifiedBy Organization Detail LastModifiedTime 09/10/20 14 09/10/2014 fecal occul t blood , stool hemosure (ifob) X1 screening NEGATI VE negati ve Not Available [address] [place], [address], 09/10/2014 15:32:38 09/10/20 14 09/10/2014 lipid panel , serum cholesterol 239 mg/dL 100-20 0 high Not Available [address] [place], [address], 09/10/2014 17:20:33 09/10/20 14 09/10/2014 lipid panel , serum HDL cholesterol 66 mg/dL > 40 Not Available [address] [place], [address], 09/10/2014 17:20:33 09/10/20 14 09/10/2014 lipid panel , serum triglyceride 100 mg/dL < 150 Not Available [address] [place], [address], 09/10/2014 17:20:33 09/10/20 14 09/10/2014 lipid panel , serum LDL cholesterol (calculated) 153 mg/dL Optim al: <100 mg/dL Near Optim al: 100-1 29 mg/dL Borde rline High: 130-1 59 mg/dL High: 160-1 89 mg/dL Very High: > or = 190 mg/dL Not Available [address], [address], 09/10/2014 17:20:33 09/10/20 14 09/10/2014 lipid panel , serum cholesterol HDL ratio 3.6 < 5.0 Not Available [address] [place], [address], 09/10/2014 17:20:33 09/10/20 14 09/10/2014 hepat ic funct ion panel , serum total bilirubin 0.5 mg/dL 0.2-1. 0 Not Available [address] [place], [address], 09/10/2014 17:20:35 09/10/20 14 09/10/2014 hepat ic funct ion panel , serum bilirubin-di rect 0.1 mg/dL 0.0-0. 2 Not Available [address] [place], [address], 09/10/2014 17:20:35 09/10/20 14 09/10/2014 hepat ic funct ion panel , serum bilirubin-in direct 0.4 mg/dL 0-1.0 Not Available [address], [address], 09/10/2014 17:20:35 09/10/20 14 09/10/2014 hepat ic funct ion panel , serum total protein 7.6 g/dL 6.4-8. 2 Not Available [address] [place], [address], 09/10/2014 17:20:35 09/10/20 14 09/10/2014 hepat ic funct ion panel , serum albumin 4.2 g/dL 3.4-5. 0 Not Available [address] [place], [address], 09/10/2014 17:20:35 09/10/20 14 09/10/2014 hepat ic funct ion panel , serum globulin 3.4 g/dL 2.0-3. 9 Not Available [address] [place], [address], 09/10/2014 17:20:35 09/10/20 14 09/10/2014 hepat ic funct ion panel , serum A/G ratio 1.2 1.2-2. 4 Not Available [address] [place], [address], 09/10/2014 17:20:35 09/10/20 14 09/10/2014 hepat ic funct ion panel , serum alk phos 81 IU/L 40-136 Not Available [address] [place], [address], 09/10/2014 17:20:35 09/10/20 14 09/10/2014 hepat ic funct ion panel , serum AST/SGOT 27 IU/L 5-37 Not Available [address] [place], [address], 09/10/2014 17:20:35 09/10/20 14 09/10/2014 hepat ic funct ion panel , serum ALT/SGPT 46 IU/L 7-65 Not Available [address] [place], [address], 09/10/2014 17:20:35 09/10/20 14 09/10/2014 CK (cregalo higgins kinvania e), total , serum creatine kinase 86 IU/L 35-232 Not Available [address], [address], 09/10/2014 17:20:36 09/10/20 14 09/11/2014 aldol ase, serum aldolase, serum 5.0 U/L <7.7 Test Perfo rmed by: [facility] [address] [facility], [place] [address] Labor atory Dire tor: Tiffani portillo, Ph.D. Not Available [address], [address], 09/11/2014 06:00:38 10/13/19 21 10/14/2020 lipid panel , serum cholesterol, total 270 mg/dL <200 high Not Available [facility] [address], [address], 10/14/2020 08:33:22 10/13/19 21 10/14/2020 lipid panel , serum HDL cholesterol 63 mg/dL > or = 40 normal Not Available [facility] [address], [address], 10/14/2020 08:33:22 10/13/19 21 10/14/2020 lipid panel , serum triglyceride s 157 mg/dL <150 high Not Available [facility] [address], [address], 10/14/2020 08:33:22 10/13/19 21 10/14/2020 lipid panel , serum LDL-choleste rol 177 mg/dL _(titi c) high Refer ence range : <100 Loco able range <100 mg/dL for prima ry preve ntion ; <70 mg/dL for patie nts with CHD or diabe tic patie nts with > or = 2 CHD risk facto rs. LDL-C is now calcu lated using the Dominga n-[facility] kins julianneu melony n, which is a valid ated novel antonietta orourke than the Fried yessica spring ion in the estim ation of LDL-C . Dominga herrera SS et al. DONNA. 2013; 310(1 9): 2061- 2068 (http ://ed ucati on.Qu estDi Veriouss. com/f aq/FA Q164) Not Available [facility] [place] [facility] [address], [place], [address], 10/14/2020 08:33:22 10/13/19 21 10/14/2020 lipid panel , serum chol/HDLC ratio 4.3 (calc ) <5.0 normal Not Available [facility] [place] [facility] [address], [place], [place], [address], 10/14/2020 08:33:22 10/13/19 21 10/14/2020 lipid panel , serum non HDL cholesterol 207 mg/dL _(titi c) <130 high For patie nts with diabe james plus 1 major ASCVD risk facto r, treat ing to a non-H DL-C goal of <100 mg/dL (LDL- C of <70 mg/dL ) is consjun valenzuela optio n. Not Available [facility] [place] [facility] [address], [place], [place], [address], 10/14/2020 08:33:22 10/13/19 21 10/14/2020 lipid panel , serum copy(ies) sent to: [facility] IPA 35 [facility] [place] [address] COPY TO [facility] 200 [facility] [place] [phone] Not Available [facility] [place] [facility] [address], [place], [address], 10/14/2020 08:33:22 10/13/19 21 10/14/2020 LDL, direc t, serum direct LDL 180 mg/dL <100 high Loco able range <100 mg/dL for prima ry preve ntion ; <70 mg/dL for patie nts with CHD or diabe tic patie nts with > or = 2 CHD risk facto rs. Not Available [facility] [place] [facility] [address], [place], [address], 10/14/2020 08:33:23 10/13/19 21 10/14/2020 LDL, direc t, serum copy(ies) sent to: [facility] CP IPA 35 [facility] [place] [address] COPY TO [facility] 200 [facility]3] [place] [address] Not Available [facility] [place] [facility] [address], [place], [place], [address], 10/14/2020 08:33:23 10/13/19 21 10/14/2020 CMP, serum or plasm a glucose 110 mg/dL 65-99 high Fasti ng refer ence inter niurka For someo ne witho ut known diabe james, a gluco se value betwe en 100 and 125 mg/dL is consi stent with predi abete s and shoul d be confi rmed with a follo w-up test. Not Available [facility] [place] [facility] [address], [place], [place], [address], 10/14/2020 08:33:23 10/13/19 21 10/14/2020 CMP, serum or plasm a urea nitrogen (BUN) 20 mg/dL 7-25 normal Not Available [facility] [place] [facility] [address], [place], [place], [address], 10/14/2020 08:33:23 10/13/19 21 10/14/2020 CMP, serum or plasm a creatinine 0.83 mg/dL 0.70-1 .25 normal For patie nts >49 years of age, the refer ence limit for Creat inine is appro jack carey 13% highe r for peopl e ident ified as Afric an-Am nguyễn n. Not Available [facility] [place] [facility] [address], [place], [address], 10/14/2020 08:33:23 10/13/19 21 10/14/2020 CMP, serum or plasm a eGFR non-afr. nigerian 93 mL/mi n/1.7 3m2 > or = 60 normal Not Available [facility] [place] [facility] [address], [place], [address], 10/14/2020 08:33:23 10/13/19 21 10/14/2020 CMP, serum or plasm a eGFR 108 mL/mi n/1.7 3m2 > or = 60 normal Not Available [facility] [place] [facility] [address], [place], [address], 10/14/2020 08:33:23 10/13/19 21 10/14/2020 CMP, serum or plasm a BUN/creatini ne ratio NOT APPLIC ABLE (calc ) 6-22 Not Available [facility] [place] [facility] [address], [place], [address], 10/14/2020 08:33:23 10/13/19 21 10/14/2020 CMP, serum or plasm a sodium 141 mmol/ L 135-14 6 normal Not Available [facility] [place] [facility] [address], [place], [address], 10/14/2020 08:33:23 10/13/19 21 10/14/2020 CMP, serum or plasm a potassium 3.8 mmol/ L 3.4-4. 8 normal Not Available [facility] [address], [place], [address], 10/14/2020 08:33:23 10/13/19 21 10/14/2020 CMP, serum or plasm a chloride 102 mmol/ L 98-110 normal Not Available [facility] [address] [place], [place], [address], 10/14/2020 08:33:23 10/13/19 21 10/14/2020 CMP, serum or plasm a carbon dioxide 28 mmol/ L 20-32 normal Not Available [facility] [address] [place], [place], [address], 10/14/2020 08:33:23 10/13/19 21 10/14/2020 CMP, serum or plasm a calcium 9.3 mg/dL 8.6-10 .3 normal Not Available [facility] [address] [place], [place], [address], 10/14/2020 08:33:23 10/13/19 21 10/14/2020 CMP, serum or plasm a calcium (adjusted for albumin) 9.4 mg/dL _(titi c) 8.6-10 .2 normal Not Available [facility] [address] [place], [place], [address], 10/14/2020 08:33:23 10/13/19 21 10/14/2020 CMP, serum or plasm a protein, total 7.2 g/dL 6.4-8. 4 normal Not Available [facility] [address] [place], [place], [address], 10/14/2020 08:33:23 10/13/1910/14/2020 CMP, serum or plasm a albumin 4.3 g/dL 3.6-5. 1 normal Not Available [facility] [address] [place], [place], [address], 10/14/2020 08:33:23 10/13/19 21 10/14/2020 CMP, serum or plasm a globulin 2.9 g/dL_ (calc ) 2.2-4. 0 normal Not Available [facility] [address] [place], [place], [address], 10/14/2020 08:33:23 10/13/19 21 10/14/2020 CMP, serum or plasm a albumin/glob ulin ratio 1.5 (calc ) 0.9-2. 3 normal Not Available [facility] [address], [place], [address], 10/14/2020 08:33:23 10/13/19 21 10/14/2020 CMP, serum or plasm a bilirubin, total 0.6 mg/dL 0.2-1. 2 normal Not Available [facility] [address], [place], [address], 10/14/2020 08:33:23 10/13/19 21 10/14/2020 CMP, serum or plasm a alkaline phosphatase 47 U/L 35-144 normal Not Available [facility] [address], [place], [address], 10/14/2020 08:33:23 10/13/19 21 10/14/2020 CMP, serum or plasm a AST 20 U/L 10-35 normal Not Available [facility] [address], [place], [address], 10/14/2020 08:33:23 10/13/19 21 10/14/2020 CMP, serum or plasm a ALT 29 U/L 9-46 normal Not Available [facility] [address], [place], [address], 10/14/2020 08:33:23 10/13/19 10/14/2020 CMP, serum or plasm a copy(ies) sent to: PO[facility]P CP IPA [address] [place] [address] [facility] 200 [facility] [place] [phone] Not Available [facility] [place] [facility] [address] [place], [place], [address], 10/14/2020 08:33:23 10/13/19 21 10/14/2020 CBC white blood cell count 9.5 thous and/u L 3.8-10 .[address] [facility] [place] [facility] [address] [place] [address], [place], [address], 10/14/2020 08:33:24 10/13/19 21 10/14/2020 CBC red blood cell count 4.59 brayan on/uL 4.20-5 .80 normal Not Available [facility] [address] [place] [address], [place], [address], 10/14/2020 08:33:24 10/13/19 21 10/14/2020 CBC hemoglobin 15.2 g/dL 13.2-1 7.[address] [facility] [place] [facility] [address], [place], [address], 10/14/2020 08:33:24 10/13/19 21 10/14/2020 CBC hematocrit 43.8 % 38.5-5 0.0 normal Not Available [facility] [address], [place], [address], 10/14/2020 08:33:24 10/13/19 21 10/14/2020 CBC MCV 95.4 fL 80.0-1 00.0 normal Not Available [facility] [address], [place], [address], 10/14/2020 08:33:24 10/13/19 21 10/14/2020 CBC MCH 33.1 pg 27.0-3 3.0 high Not Available [facility] [address] [place], [place], [address], 10/14/2020 08:33:24 10/13/19 21 10/14/2020 CBC MCHC 34.7 g/dL 32.0-3 6.0 normal Not Available [facility] [place] [facility] [address], [place], [address], 10/14/2020 08:33:24 10/13/19 21 10/14/2020 CBC RDW 12.4 % 11.0-1 5.0 normal Not Available [facility] [place] [facility] [address], [place], [address], 10/14/2020 08:33:24 10/13/19 21 10/14/2020 CBC platelet count 220 thous and/u L 140-40 0 normal Not Available [facility] [place] [facility] [address], [place], [address], 10/14/2020 08:33:24 10/13/19 21 10/14/2020 CBC MPV 9.9 fL 7.5-12 .5 normal Not Available [facility] [address], [place], [address], 10/14/2020 08:33:24 10/13/19 21 10/14/2020 CBC copy(ies) sent to: POCCP CP IPA 35 [place] [address] COPY TO [facility] 200 [facility] [place] [phone] Not Available [facility] [address], [place], [address], 10/14/2020 08:33:24 10/13/19 21 10/14/2020 TSH, serum or plasm a TSH 1.97 mIU/L 0.40-4 .50 normal Not Available [facility] [address], [address], 10/14/2020 08:33:24 10/13/19 21 10/14/2020 TSH, serum or plasm a copy(ies) sent to: [facility] IPA 35 [facility] [address] COPY TO [facility] 200 [facility] [place] [address] Not Available [facility] [address], [address], 10/14/2020 08:33:24 10/13/19 21 10/14/2020 PSA, serum or plasm a PSA, total 2.1 NG/mL < or = 4.0 normal The total PSA value from this assay syste m is stand ardiz ed again st the [facility] stand teetee. The test resul t will be appro ximat cherry 20% lower when shukri red to the equim olar- stand ardiz ed total PSA (Marrero man Coult er). Shukri rison of seria l PSA resul ts shoul d be inter prete d with this fact in mind. This test was perfo rmed using the [employer] [place] chemi lumin escen t metho d. Value s obtai fanta from diffe rent assay metho ds canno t be used inter celis eably . PSA level s, regar dless of value , shoul d not be inter prete d as absol angel evide nce of the prese nce or absen ce of disea se. Not Available [facility] [address] [place], [address], 10/14/2020 08:33:25 10/13/19 21 10/14/2020 PSA, serum or plasm a copy(ies) sent to: [facility] IPA 35 [facility] [place] [address] COPY TO [facility] 200 [facility]3] [place] [phone] Not Available [facility] [place] [facility] [address] [place], [address], 10/14/2020 08:33:25 10/08/19 15 10/08/2014 cervi titi spine min 4 views FINAL Reason : CERVIC ALGIA EXAM# DEPT/E XAM EXAM DATE TIME [id number] WXR - Cervic al Spine Min 4 Views 2014 15:41 RESULT : Histor y: 59-yea r-old male with cervic al spine pain Techni que: 5 views of the cervic al spine were perfor med includ ing obliqu e views. There are no prior studie s. Findin gs: There is no acute fractu re or sublux ation. There is mild disc space narrow ing at C2-4 with modera te disc space narrow ing at C5-7. Verteb ral body height s are mainta ined, and the alignm ent is satisf actory . There is no prever tebral soft tissue swelli ng. The C1-2 relati onship is mainta ined. Obliqu e views show mild bilate ral neural forami nal narrow ing at C3-4 and mild left neural forami nal narrow ing at C6-7. The other neural forame n are patent . A small amount of vascul ar calcif icatio ns are seen in the left mid neck. IMPRES NAOMI: No fractu re of the cervic al spine. Mild-m oderat e degene rative change s in the cervic al spine as descri bed. Report Electr onical ly Signed by: Mukul Stanley MD on 015 3:52 PM Read by: MUKUL STANLEY [id number] on Oct 08 2014 3:49P Transc ribed by: PSC on Oct 08 2014 3:52P Signed by: DR. MUKUL STANLEY on: Oct 08 2014 3:52P Suppor ting Provid er(s): Orderi ng Provid er: MARK FLANAGAN Result Copies To: MARK FLANAGAN Attend ing Doctor : MARK FLANAGAN Referr ing Doctor : MAMDOU H MASHA lama Doctor : Kendra landeros Doctor : Other Health care Provid er: [facility] (Pediatrics) [address] [place] [address], [id number], 09/02/2015 04:08:33 01/22/20 16 01/22/2016 left elbow min 3 views FINAL Reason : FALL EXAM# DEPT/E XAM EXAM DATE TIME [id number] 3 SXR - Left Elbow Min 3 Views 2015 13:43 RESULT : 3 views left elbow. Histor y: Trauma 2 weeks ago. Persis tent pain. Findin gs: A joint effusi on is not presen t. The radial head and neck are normal . No fractu res are visual ized. IMPRES NAOMI: Negati ve exam. Report Electr onical ly Signed by: Charity parks MD on 016 2:21 PM Read by: CHARITY BISHOP [place] [id number] on Jan 22 2016 2:20P Transc ribed by: PSC on Jan 22 2016 2:21P Signed by: DR. CHARITY BISHOP IN on: Jan 22 2016 2:21P Suppor ting Provid er(s): Orderi ng Provid er: LESIA READY Result Copies To: MARK FLANAGAN Attend ing Doctor : JOSE LUIS Lin Referr ing Doctor : MARK lama Doctor : Kendra landeros Doctor : Other Health care Provid er: [facility] ([facility] [address] [place] [address], [id number], 01/22/2016 15:52:46 01/22/20 16 01/22/2016 x-ray , elbow No observ ation record ed. [facility] Registration [address] [place], [id number], 01/22/2016 15:52:18 Result Notes None recorded. Problems Name Problem SNOMED Code Status Onset Date Resolution Date Notes Provider Name and Address Organization Details Recorded Time Mixed hyperlipide justin 451393893 Active Blue Flanagan MD [address] [place] [address],[facility] 2, [place], [address] , [facility] 5 11:28:25 Acute sinusitis 97279903 Completed 03/15/2019 Blue Flanagan MD [address] [place] [address], [place], [address], [facility] 9 11:47:34 Non-traumat ic rupture of biceps brachii tendon 634010414 Completed 03/15/2019 Blue Flanagan MD [address] [place] [address], [place], [address], [place] [facility] 9 11:47:49 Visual disturbance 15801877 Completed 03/15/2019 Blue Flanagan MD [address] [place] [address], [place], [address], [facility] 9 11:47:55 Acute maxillary sinusitis 66183768 Completed 03/15/2019 Blue Flanagan MD [address] [place] [address], [place], [address], [place] [facility] 9 11:47:58 Benign essential hypertensio n 1055258 Active Blue Flanagan MD [address] [place] [address], [place], [address], [facility] 5 11:33:43 Pain in thoracic spine 977001301 Completed 03/15/2019 Blue Flanagan MD [address] [place] [address], [place], [address], [facility] 9 11:47:38 Acute pharyngitis 020160086 Completed 03/15/2019 Blue Flanagan MD [address] [place] [address], [place], [address], [facility] 9 11:47:43 Neck pain 95519070 Active [facility] 5 11:38:57 Bronchitis 37278398 Completed 03/15/2019 Blue Flanagan MD [address] [place] [address],[place], [address], [facility] 9 11:47:41 Allergic rhinitis 65755095 Active Blue Flanagan MD [address] [place] [address], [place] [address], [place], [address], [facility] 5 11:28:25 Melanocytic nevus of skin 721546780 Completed 03/15/2019 Blue Flanagan MD [address] [place] [address],[facility] 2, [place], [address], [facility] 9 11:47:46 Low back pain 204292809 Active 2022 Blue Flanagan MD [address] [place] [address],[facility] 2, [place], [address], [facility] 3 15:11:40 Problem Notes None recorded. Procedures Surgical History Date Name Laterality Status Provider Name and Address Organization Details Recorded Time Tonsillectomy completed Blue Flanagan MD [address] [place] [address],[address], [place], [address], [facility] 05/10/2012 10:53:31 Imaging Results None recorded. Procedure Notes None recorded. Medical Equipment None Reported. Allergies No known drug allergies Medications Name Sig Start Date Stop Date Status Note LastModified by Organization Details LastModified Time cyclobenzap rine 10 mg tablet TAKE 1 TABLET BY MOUTH TWICE A DAY 03/15 completed Not Available Not Available Not Available amoxicillin 500 mg capsule TAKE 1 CAPSULE BY MOUTH THREE TIMES A DAY UNTIL FINISHED 11/10 completed Not Available Not Available Not Available nystatin 100,000 unit/mL oral suspension active Not Available Not Available N ot Available prednisone 10 mg tablet 10/08 completed Not Available Not Available Not Available atorvastati n 20 mg tablet Take 1 tablet every day by oral route. active Not Available Not Available No t Available azithromyci n 250 mg tablet TAKE 2 TABLETS BY MOUTH TODAY, THEN TAKE 1 TABLET DAILY FOR 4 DAYS active Not Available Not Available No t Available ibuprofen 800 mg tablet TAKE 1 TABLET BY MOUTH EVERY 4 TO 6 HOURS NEEDED FOR PAIN active Not Available Not Available No t Available ofloxacin 0.3 % eye drops active Not Available Not Available Not Available nystatin 100,000 unit/gram topical ointment Apply by topical route.BID for 3 weeks active Not Available Not Available No t Available hydrocodone 5 mg-acetamin ophen 325 mg tablet active Not Available Not Available No t Available meloxicam 15 mg tablet TAKE 1 TABLET BY MOUTH EVERY DAY 2020 active Not Available Not Available Not Avai lable lisinopril 20 mg tablet TAKE 1 TABLET BY MOUTH TWICE A DAY active Not Available Not Available No t Available Medrol (Rod) 4 mg tablets in a dose pack Take by oral route as directed 11/10 completed Not Available Not Available Not Available metoprolol succinate ER 100 mg tablet,exte nded release 24 hr TAKE 1 TABLET BY MOUTH EVERY DAY active Not Available Not Available No t Available clindamycin HCl 150 mg capsule active Not Available Not Available Not Available cyanocobala min (vit B-12) 1,000 mcg tablet Take 1 tablet every day by oral route. 2011 active Not Available Not Available Not Avai lable penicillin V potassium 500 mg tablet TAKE 1 TAB EVERY 6 HOURS UNTIL FINSHED active Not Available Not Available No t Available acetaminoph en 300 mg-codeine 30 mg tablet TAKE 1 TABLET BY MOUTH EVERY 6 HOURS NEEDED FOR PAIN active Not Available Not Available No t Available amlodipine 5 mg tablet TAKE 1 TABLET BY MOUTH EVERY DAY active Not Available Not Available No t Available ciprofloxac in 500 mg tablet TAKE 1 TABLET BY MOUTH TWICE A DAY UNTIL FINISHED 11/10 completed Not Available Not Available Not Available omeprazole 40 mg capsule,del ayed release TAKE 1 CAPSULE BY MOUTH EVERY DAY 2019 active Not Available Not Available Not Avai lable tramadol 50 mg tablet TAKE 1 TABLET BY MOUTH 3 TIMES A DAY active Not Available Not Available No t Available oxycodone-a cetaminophe n 5 mg-325 mg tablet TAKE 1 TABLET EVERY 4 TO 6 HOURS NEEDED FOR PAIN active Not Available Not Available No t Available ofloxacin 0.3 % ear drops active Not Available Not Available Not Available amoxicillin 875 mg tablet TAKE 1 TABLET TWICE A DAY UNITL FINISHED 11/10 completed Not Available Not Available Not Available prednisolon e acetate 1 % eye drops,suspe nsion active Not Available Not Available Not Available gabapentin 300 mg capsule TAKE 1 CAPSULE BY MOUTH 3 TIMES A DAY active Not Available Not Available No t Available diclofenac sodium 75 mg tablet,joan yed release TAKE 1 TABLET BY MOUTH TWICE A DAY 03/15 completed Not Available Not Available Not Available metoprolol succinate ER 25 mg tablet,exte nded release 24 hr TAKE 1 TABLET BY MOUTH DAILY 03/15 completed Not Available Not Available Not Available azelastine 137 mcg (0.1 %) nasal spray active Not Available Not Available Not Available lisinopril 40 mg tablet active Not Available Not Available Not Available fluticasone propionate 50 mcg/actuati on nasal spray,suspe nsion active Not Available Not Available Not Available itraconazol e 100 mg capsule active Not Available Not Available Not Available atenolol 50 mg tablet TAKE 1 TABLET BY MOUTH EVERY DAY 11/22 completed Not Available Not Available Not Available amoxicillin 875 mg-potassiu m clavulanate 125 mg tablet TAKE 1 TABLET BY MOUTH TWICE A DAY UNTIL FINISHED active Not Available Not Available No t Available metaxalone 800 mg tablet active Not Available Not Available Not Available ketorolac 0.4 % eye drops active Not Available Not Available Not Available Althea-D 24 Hour 180 mg-240 mg tablet,exte nded release TAKE 1 TABLET BY MOUTH EVERY DAY 03/15 completed Not Available Not Available Not Available hydrocodone 5 mg-acetamin ophen 300 mg tablet TAKE 1 TABLET BY MOUTH EVERY 4 TO 6 HOURS NEEDED FOR PAIN active Not Available Not Available No t Available Vitals Date Recorded Body weight Heart rate Body mass index (BMI) Body height Systolic And Diastolic Systolic And Diastolic Provider Name and Address Organization Details Last Updated DateTime 5 32261.3 214 g 72 /min 31.6 kg/m2 177.8 cm 155/101 mm[Hg] 151/101 mm[Hg] Blue Flanagan MD [address] [place] [address], [facility], [place], [address] 5 11:28:27 Date Recorded Body height Body temperature Body mass index (BMI) Body weight Systolic And Diastolic Provider Name and Address Organization Details Last Updated DateTime 10/08/2020 172.72 cm 96.4 [degF] 33.5 kg/m2 32381.3 2 g 138/80 mm[Hg] Blue Flanagan MD [address] [facility] 2, [place], [address], [facility] 1 10:54:17 Date Recorded Body height Body mass index (BMI) Body weight Heart rate Systolic And Diastolic Provider Name and Address Organization Details Last Updated DateTime 11/22/2019 172.72 cm 33.5 kg/m2 47175.32 g 80 /min 162/92 mm[Hg] Blue Flanagan MD [address] [place] [address] 2, [place], [address] , [facility] 11/22/2019 11:19:20 Date Recorded Body height Body mass index (BMI) Body weight Systolic And Diastolic Provider Name and Address Organization Details Last Updated DateTime 02/20/2020 172.72 cm 32.7 kg/m2 35931.36 g 140/80 mm[Hg] Blue Flanagan MD [address] [place] [address] 2, [place], [address], [facility] 02/20/2020 11:32:14 Date Recorded Body height Body mass index (BMI) Body weight Heart rate Systolic And Diastolic Provider Name and Address Organization Details Last Updated DateTime 03/15/2019 172.72 cm 33.3 kg/m2 42789.73 g 82 /min 140/80 mm[Hg] Blue Flanagan MD [address] [place] [address], [place], [address] , [facility] 03/15/2019 11:41:44 Social History Question Answer Notes LastModified by Organizat ion Details LastModified Time Tobacco Smoking Status Never Smoker Not Available [employer] 07/28/2020 03:31:07 Are You Blind Or Do You Have Difficulty Seeing? No [id number] Information not available 07/28/2020 Are You Deaf Or Do You Have Serious Difficulty Hearing? No [id number] Information not available 07/28/2020 What Type Of Diet Are You Following? REGULAR [id number] Information not available 07/28/2020 What Is The Highest Grade Or Level Of School You Have Completed Or The Highest Degree You Have Received? [id number] Information not available 07/28/2020 How Many Days Of Moderate To Strenuous Exercise, Like A Brisk Walk, Did You Do In The Last 7 Days? 0 [id number] Information not available 07/28/2020 On Those Days That You Engage In Moderate To Strenuous Exercise, How Many Minutes, On Average, Do You Exercise? 0 [id number] Information not available 07/28/2020 How Hard Is It For You To Pay For The Very Basics Like Food, Housing, Medical Care, And Heating? [id number] Information not available 03/15/2019 Marital Status Informatio n not available 05/10/2012 What Was The Date Of Your Most Recent Tobacco Screening? 03/15/2019 [id number] Information not available 07/28/2020 How Many Children Do You Have? 3 [id number] Information not available 07/28/2020 How Much Tobacco Do You Smoke? No [id number] Information not available 07/28/2020 Do You Have Difficulty Walking Or Climbing Stairs? Yes [id number] Information not available 07/28/2020 Sex: Unknown Functional Status Question Answer Note LastModified by [employer] Details LastModified Time What is your level of alcohol consumption? Occasional [id number] Information not available 07/28/2020 Do you have difficulty doing errands alone? No [id number] Information not available 07/28/2020 What is your occupation? sales [id number] Information not available 07/28/2020 Do you have difficulty dressing or bathing? No [id number] Information not available 07/28/2020 What is your exercise level? Occasional [id number] Information not available 07/28/2020 Mental Status Question Answer Note LastModified by [employer] Details LastModified Time Do you feel stressed (tense, restless, nervous, or anxious, or unable to sleep at night)? [id number] Information not available 07/28/2020 Do you have difficulty concentrating, remembering or making decisions? No [id number] Information no t available 07/28/2020 Family History Relationship Description Onset Age of this Age Resolved Age Notes LastModified by Organization Details LastModified Time Mother Problem HTN mriad Not available 11:29:14 Father Problem Hydoce phales mriad Not available 10/07/2014 11:29:14 Medical History Condition Response Gout N Allergic rhinitis N Migraine N Osteoarthritis N Colon Cancer N Kidney Stones N Anxiety N HTN Y Breast Cancer N Depression N COPD N Hypothyroidism N Urinary incontinence N CAD N Colonoscopy (enter date) N Back pain Y CHF N Neck pain N Afib N Hyperlipidemia N BPH N IBS N Schizopherenia N CVA N Diverticulitis N Sick Sinus Syndrome N Asthma N Bladder Cancer N NIDDM N Prostate cancer N Bipolar Disorder N GERD N RA N Fibromyalgia N Osteoporosis N Past Encounters Encounter ID Performer Location Encounter Start Date Encounter Closed Date Diagnosis/Indication Diagnosis SNOMED-CT Code Diagnosis ICD10 Code Diagnosis Note [id number] MD BLUE Montgomery MD[facility] [address] [place] [place] [id number] 05/10/2012 10:12:01 05/10/2012 11:08:49 [id number] MD BLUE Montgomery MD[facility] [address] [place] [id number] 07/16/2012 16:08:49 07/16/2012 16:43:25 [id number] MD BLUE Montgomery MD[facility] [address] [place] [place] [id number] 09/06/2012 13:29:24 09/06/2012 14:18:58 [id number] MD BLUE Montgomery MD[facility] [address] [place] [place] [id number] 12/11/2012 15:57:51 12/11/2012 16:15:05 [id number] MD BLUE Montgomery MD[facility] [address] [place] [place] [id number] 12/25/2012 10:13:49 12/25/2012 10:54:36 [id number] MD BLUE Montgomery MD[facility] [address] [place] [place] [id number] 04/01/2013 16:01:40 04/01/2013 16:26:10 [id number] MD BLUE Montgomery MD[facility] [address] [place] [place] [id number] 08/26/2013 14:43:56 08/26/2013 15:26:48 Benign essential hypertension 7016009 [id number] MD BLUE Montgomery MD[facility] [address] [place] [place] [address] 02/04/2014 10:08:43 02/04/2014 10:39:05 Mixed hyperlipidemia 703649057 Benign ess ential hypertension 5553208 Neck pain 80550743 Adult heal th examination 245555323 Allergic rhinitis 15420854 [id number] MD BLUE Montgomery MD[facility] [address] [place] [place] [address] 08/07/2014 10:23:16 08/07/2014 10:49:04 Mixed hyperlipidemia 887941574 hyperlipid imia Benign ess ential hypertension 7350951 Allergic rhinitis 85206210 Neck pain 48200146 [id number] MD BLUE Montgomery MD[facility] [address] [place] [address] 10/07/2014 11:20:25 10/07/2014 11:40:34 Benign essential hypertension 8973407 Neck pain 56026019 Melanocyti c nevus of skin 076966739 [id number] MD BLUE Montgomery [facility] [address] [place] [place] [address] 03/15/2019 11:17:39 03/15/2019 11:56:19 Adult health examination 332936707 Z00.01 Mixed hyperlipidemia 267 448360 E78.2 hyperlipid imia Benign ess ential hypertension 8100192 I10 Allergic rhinitis 713315 04 J30.9 Neck pain 40158407 M54.2 Foot pain 90289777 M79.6 73 [id number] MD BLUE Montgomery [facility] [address] [place] [address] 11/22/2019 11:05:06 11/22/2019 11:31:24 Benign essential hypertension 4902440 I10 Allergic rhinitis 228280 04 J30.9 Mixed hyperlipidemia 267 547625 E78.2 hyperlipid imia Neck pain 97564182 M54.2 Acute sinusitis 32810761 J01.90 [id number] MD BLUE Montgomery MD[facility] [address] [place] [id number] 02/20/2020 11:21:41 02/20/2020 11:46:11 Acute sinusitis 07359352 J01.90 Gastroesop hageal reflux disease 324592952 K21.9 [id number] MD BLUE Montgomery MD[facility] [address] [place] [id number] 10/08/2020 10:46:24 10/08/2020 11:11:19 Benign essential hypertension 0043296 I10 Mixed hyperlipidemia 267 188289 E78.2 hyperlipid imia Allergic rhinitis 778819 04 J30.9 Neck pain 82815725 M54.2 Adult heal th examination 303786153 Z00.01 Screening for malignant neoplasm of colon 538477175 Z12.11 Skin lesion 94768019 L98 .9 Infection of tooth 67414 8007 K04.7 Health Concerns Section Related Observation LastModified by Organization Detai ls LastModified Time None Recorded Concern Status LastModified by Organization Details LastModified Time None Recorded Advance Directives Directive None Recorded Payers Insurance Date Sequence Insurance Name Policy Number Policy Ramirez Covered Member ID Ramirez Member ID Guarantor Name 03/06/[address] [facility]: H[place] BLUE [place] DEDUCTIBLE (HMO) [id number] Emory A Loud Jr [id number] Segundo Loud 12/13/2019 1 [facility] [id number] Segundo Loud [id number] Segundo Loud 01/19/2021 1 [facility] PUBLIC PLANS [facility] [place] (HMO) [id number] Emory A Loud [id number] Segundo Loud 08/13/2022 1 MEDICARE B-[place]: [facility] [employer] Emory A Loud [id number] Segundo Loud 09/10/2019 1 [facility]MEDICAID) Emory Manzo Loud [id number] Segundo Loud 01/31/2020 1 [facility] DEDUCTIBLE - PREFERRED (EPO) [id number] Emory Loud [id number] Segundo Loud Notes Date Note Type Note Provider Name and Address Organization Details Recorded Time 10/07/2014 text/html HPI Pt is here c/o neck pain radiating to both shoulders and a mole chest wall Blue Flanagan MD [address] [place] [address],[address], [place], [address], [facility] 10/07/2014 11:34:16 03/15/2019 text/html Pt is here for CPE Blue Flanagan MD [address] [place] [address],[address], [place], [address], [facility] 03/15/2019 11:51:40 11/22/2019 text/html Pt is here for f/u on allergic rhinitis, hyperlipidemia, neck pain, HTN. BP poorly controlled. Pt compliant with Rx Blue Flanagan MD [address] [place] [address],[address], [place], [address], [facility] 11/22/2019 11:27:10 02/20/2020 text/html Pt is here c/o sinusitis sx for a few days, with facial pressure, mild headache, post nasal drip, and low grade fever Blue Flanagan MD [address] [place] [address],[address], [place], [address], [facility] 02/20/2020 11:42:49 10/08/2020 text/html Pt is here for CPE Blue Flanagan MD [address] [place] [address],[address], [place], [address], [facility] 10/08/2020 11:06:43
--- NOTE | 2025-04-11 12:25 | A.OFFVIS_ITS ---
Vital Signs 04/11/25 12:27 Height 5 ft 10 in Weight 196 lb BMI 28.1 BP 163/75 H Blood Pressure Location Lt brachial Position Sitting Respiration 16 Pulse 73 Pulse Source Pulse Oximeter Pulse Oximetry (%) 96 Oxygen Delivery Method Room Air Intake Visit Reasons: Dorsalgia, unspecified Costume Rental Clerk Required: No Allergies No Known Allergies Allergy (Verified 04/11/25 12:29) Medication List - Last Reconciled 04/11/25 by Brynn Al LPN amlodipine 5 mg PO DAILY lisinopril 10 mg PO DAILY metoprolol tartrate 100 mg PO DAILY HPI HPI Dorsalgia, unspecified: Details: History of Present Illness The patient is a 70-year-old male presenting with chronic lower back pain management. The pain is described as axial lower back pain radiating down both legs, attributed to sciatica, lumbar spinal stenosis, and degenerative disc disease. The patient underwent bilateral laminotomy and partial facetectomy with foraminotomy, but continues to experience significant pain. The pain is severe, rated at 9/10 in intensity, and is exacerbated by walking, while sitting provides some relief. The pain significantly impacts daily activit ies and sleep, leading to a decreased quality of life. The patient has a history of various interventions, including facet blocks and other injections, which provided temporary relief. However, the effectiveness of these interventions has diminished over time, with the patient reporting no relief from recent injections. The patient has been informed about the possibility of a spinal cord stimulator as a treatment option, which involves a trial period to assess effectiveness. The patient is open to this option, understanding the potential benefits and limitations. Pain Description - Onset and Timing: Chronic, persistent pain - Quality and Character: Axial lower back pain radiating down both legs - Primary Location: Lower back - Areas of Radiation: Down both legs - Exacerbating Factors: Walking - Relieving Factors: Sitting - Interference with Activities: Affects sleep and daily activities Physical Exam - Appears afebrile. - Alert and oriented. - Mood and affect appropriate. - Follows and participates in conversation appropriately. - Respiratory effort is unlabored. - Able to stand and walk on toes and heels. Pain Management - Affect: Pain significantly impacts mood and quality of life - Analgesia: Current pain level is 9/10, goal is significant reduction - Adverse Effects: None reported - Activities of Daily Living: Pain interferes with sleep and daily activities - Aberrant Drug Related Behaviors: None reported [facility] Medical History Frozen shoulder Back pain Weakness of both legs Sciatica Plantar fasciitis of right foot Obese GERD (gastroesophageal reflux disease) Elevated cholesterol HTN (hypertension) Surgical History Hx of colonoscopy History of wisdom tooth extraction Hx of tonsillectomy Hx of thumb surgery Social History Household Members: Spouse Housing: House Are you a primary medicare sales representative to a significant other at home: No Do you presently have visiting nurse or other home services: No Patient Tobacco Use Status: Never used Tobacco Physical Exam Vital Signs: Last Vital Signs Pulse 73 04/11/25 12:27 Resp 16 04/11/25 12:27 BP 163/75 H 04/11/25 12:27 Pulse Ox 96 04/11/25 12:27 Oxygen Delivery Method Room Air 04/11/25 12:27 BMI result Body Mass Index 28.1 Assessment & Plan Assessment & Plan (1) Post laminectomy syndrome: Code(s): M96.1 - Postlaminectomy syndrome, not elsewhere classified Category: Medical Plan Plan - Plan for psychological clearance in anticipation of a trial with [employer] spinal cord stimulation system. - [place] facet interventions for any refractory pain not responsive to spinal cord stimulation. - Discussed the potential benefits and limitations of spinal cord stimulation, including a trial period to assess effectiveness. Patient was informed and verbally consented to the use of an ambient scribe for clinic note documentation during this visit. Discussion Notes I discussed with the patient the potential use of a spinal cord stimulator to manage his multifactorial chronic lower back pain, explaining the procedure involves a trial period to evaluate its effectiveness. We reviewed the risks and benefits, emphasizing that while it may not completely eliminate pain, it could significantly reduce it. The patient was informed about the need for psychological clearance as part of the insurance requirements before proceeding with the trial. Patient Instructions - Await a call from [employer] for psychological clearance. - Consider the spinal cord stimulator trial to assess pain relief. Coding Level of Care Code New Pt Level 4 (99820) Diagnoses Post laminectomy syndrome M96.1
[2025-04-11 12:27] VITALS: BP 163/75; PULSE 73; RESP 16; O2SAT 96; BMI 28.1
== END 2025-04-11 13:04 | disposition home or self-care (01) ==
LOC: HO.PMC 12:10
PROVIDERS: Referring Provider Physician Assistant; Visit Provider Internal Medicine
DX: M96.1 Postlaminectomy syndrome, not elsewhere classified (principal)
CPT/HCPCS: 99204

== ENCOUNTER → 2025-04-11 12:10 | Outpatient (BNVA) | payer MEDICARE, SELFPAY | PROVIDERS: Referring Provider Physician Assistant; Visit Provider Internal Medicine | DX: M96.1 Postlaminectomy syndrome, not elsewhere classified (principal) | CPT/HCPCS: 99202 ==

== ENCOUNTER 2025-06-20 12:13 | Outpatient (AMB) | payer MEDICARE, SELFPAY ==
--- NOTE | 2025-06-20 12:13 | MHC.OFFVIS ---
Intake Visit Reasons: Discuss options Allergies No Known Allergies Allergy (Verified 04/11/25 12:29) HPI HPI Discuss options: Details: History of Present Illness The patient is a 70-year-old male presenting with a follow-up for the denial of a spinal cord stimulation trial. The trial was denied due to concerns including the lack of completion of physical therapy in the past year and the absence of a reported disability score. The patient completed a physical therapy evaluation on May 23, 2025, but experienced worsening pain that precluded further participation. The patient reports that physical therapy exacerbates his pain and has not been beneficial in the past, leading to his disinterest in continuing it. Additionally, the patient has been on various medications for pain management over several years, including Celebrex 200 mg, gabapentin, and acetaminophen, which have not provided relief. He is not interested in trying opioids such as oxycodone. Pain Description - Onset: Worsening pain following physical therapy evaluation on May 23, 2025 - Quality: Exacerbated by physical therapy, not relieved by medications - Medications: Celebrex 200 mg, gabapentin, acetaminophen - Interference: Pain precludes participation in physical therapy Physical Exam - Televisit Results MILLI scale: 50% indicating severe disability Pain Management - Affect: Pain impacts patient's willingness to participate in physical therapy - Analgesia: Current medications include Celebrex 200 mg, gabapentin, acetaminophen; no relief reported - Adverse Effects: None reported - Activities of Daily Living: Pain limits physical therapy participation - Aberrant Drug Related Behaviors: No interest in opioids such as oxycodone PFSH Medical History Frozen shoulder Back pain Weakness of both legs Sciatica Plantar fasciitis of right foot Obese GERD (gastroesophageal reflux disease) Elevated cholesterol HTN (hypertension) Surgical History Hx of colonoscopy History of wisdom tooth extraction Hx of tonsillectomy Hx of thumb surgery Social History Household Members: Spouse Housing: House Are you a primary acute care certified nursing assistant to a significant other at home: No Do you presently have visiting nurse or other home services: No Patient Tobacco Use Status: Never used Tobacco Telehealth Telehealth Telehealth Platform: [employer] Location of provider rendering services: practice address Location of patient: address on file Patient Identification confirmed using: Name, : Yes Telehealth method: video Patient verbally consented to treatment: Yes Patient verbally consented to billing insurance company: Yes Patient informed of any privacy concerns related to visit: Yes Assessment & Plan Assessment & Plan (1) Post laminectomy syndrome: Code(s): M96.1 - Postlaminectomy syndrome, not elsewhere classified Category: Medical Plan Plan Patient was informed and verbally consented to the use of an ambient scribe for clinic note documentation during this visit. 1. Chronic Pain - Plan to resubmit request for spinal cord stimulation trial authorization - Submission of new clinical documentation to insurance for reconsideration - Patient agrees with the plan to proceed with the trial upon approval 2. Lumbar Spinal Cord Stimulation Trial Denial - Addressed insurance concerns regarding physical therapy and disability score - Plan to submit new documentation addressing all objections Discussion Notes I discussed with the patient the plan to resubmit the request for a spinal cord stimulation trial, addressing the insurance company's concerns regarding physical therapy and the disability score. We agreed to submit new clinical documentation to support the request, and the patient is in agreement with proceeding with the trial upon approval. Patient Instructions - Await contact from [facility] regarding trial setup after approval - Follow up with any new concerns or questions Coding Level of Care Code Tele Est Pt Level 4 (52353) Diagnoses Post laminectomy syndrome M96.1
--- OUTSIDE RECORDS SUMMARY | 2025-06-20 13:58 | XMS_ITS | Clinical Summary ---
Author Organization [facility] Address [address] [place] [address] Phone Care Team Providers Care Pot Feeder Name Role Phone Chalo Masters MD Primary Care Provider [phone]- [phone] Social History Tobacco Use Types Packs/Day Years [...] 02/10/2006 ZOSTER VACCINES (1 of 2) 02/10/2006 INFLUENZA VACCINE (#1) 2025 COVID-19 VACCINE (2023-2 5 season) 2025 RSV VACCINE (1 - 1-dose 75+ series) [...] PARTIAL HEALTH SAFETY NET PARTIAL Care Teams Pot Feeder Relationship Specialty Start Date End Date Chalo Masters MD [address] [place] [phone] [email or web address] PCP - General Internal Medicine 04/05/19 Additional Source Comments The information contained in this document represents components of the legal health record. It is not the complete legal health record.[facility]
--- OUTSIDE RECORDS SUMMARY | 2025-06-20 13:58 | XMS_ITS | Encounter Summary ---
Author Organization [facility] Address [address] [place] [address] Phone Care Team Providers Care Conche Operator Name Role Phone Chalo Masters MD Primary Care Provider [phone]- [phone] Reason for Referral * Physical Therapy (Elective) - Closed Specialty Diagnoses / Procedures Referred By Hans badillo Referred To Contact Physical Therapy Diagnoses Plantar fasciitis, right Kyle Oconnell MD Phone: tel: fax: [email or web address] Physical Therapy [address] [place] [address] Phone: tel: fax: Referral ID Status Reason Start Date Expiration Date Visits Re quested Visits Authorized [id number] Closed 04/12/2019 04/12/2020 20 20 Encounter Details Date Type Department Care Team (Latest Contact Info) Description 04/05/2019 Transcribe Orders [facility] Physical Therapy [address] [place] [address] Kyle Oconnell MD [address] [place] [address] [email or web address] Plantar fasciitis, right (Primary Dx) Social History Tobacco Use Types Packs/Day Years Used Date Smoking Tobacco: Never Assessed Sex and Gender Information Value Date Recorded Sex Assigned at Not on file Legal Sex Male 6:27 PM EST Gender Identity Not on file Sexual Orientation Not on file documented as of this encounter Plan of Treatment Scheduled Referrals Name Type Priority Associated Diagnoses Order Schedule Ambulatory referral to [facility] Physical Therapy Outpatient Referral Routine Plantar fasciitis, right Ordered: 04/05/2019 documented as of this encounter Visit Diagnoses Diagnosis Plantar fasciitis, right- Primary documented in this encounter Care Teams Conche Operator Relationship Specialty Start Date End Date Chalo Masters MD [address] [place] [address], [facility] [address] [place] [address] [email or web address] PCP - General Internal Medicine 04/05/19 documented as of this encounter Additional Source Comments The information contained in this document represents components of the legal health record. It is not the complete legal health record.[facility]
--- OUTSIDE RECORDS SUMMARY | 2025-06-20 13:58 | XMS_ITS | Clinical Summary ---
Author Organization [facility] [address] [facility] Address [address] [place] [address] Phone Care Team Providers Care Whiting Machine Operator Name Role Phone Dereje Cavanaugh MD Primary [...] 11:30 AM EST Office Visit Adult Medicine [address] [phone] Dereje Cavanaugh MD [address] [place] [address] Health Maintenance Due Date Last Done Comments DTaP,Tdap,and Td Vaccines (1 - Tdap) 02/10/1975 Pneumococcal Vaccine: 50+ Ye ars (1 of 1 - PCV) 02/10/2006 Zoster Vaccines (1 of 2) 02/10/2006 Depression Screening 09/25/2024 Abdominal Aortic Aneurysm (A AA) Screen 02/15/2025 Cholesterol Screening (Lipid Panel) 02/15/2025 Colorectal Cancer Screening: Colonoscopy 02/15/2025 Falls Risk Assessment 02/15/2025 Hepatitis C Screening 02/15/2025 Medicare Annual Wellness Visit 02/15/2025 Social Influencers of Health Screening 02/15/2025 COVID-19 Vaccine (1 - 2023-2 5 season) 2025 Influenza Vaccine (#1) 2025 RSV Immunization Adult [...] topic Insurance [employer]ARE [employer]AGE Care Teams Whiting Machine Operator Relationship Specialty Start Date End Date Dereje Cavanaugh MD [address] [place] [address] PCP - General Internal Medicine 02/14/25
== END 2025-06-20 12:14 | disposition home or self-care (01) ==
LOC: HO.PMC 12:13
PROVIDERS: PCP Neurological Surgery; Visit Provider Internal Medicine
DX: M96.1 Postlaminectomy syndrome, not elsewhere classified (principal)
CPT/HCPCS: 99214